=== PATIENT | female | born 1985 | race African-American/Black ===

== ENCOUNTER 2020-04-05 19:34 | Emergency (ER) | payer OTHER, SELFPAY ==
[2020-04-05 19:40] VITALS: BP 154/101; PULSE 94; RESP 19; TEMP 36.1; O2SAT 98
--- NOTE | 2020-04-05 20:56 | PC.NURSE ---
No answer when called from waiting room. Pt left without being seen.
== END 2020-04-05 20:56 | disposition left against medical advice (07) ==
LOC: ANHED 20:59
DX: K21.9 Gastro-esophageal reflux disease without esophagitis (principal)
CPT/HCPCS: 99199

== ENCOUNTER 2020-04-06 11:44 | Emergency (ER) | payer OTHER, SELFPAY ==
--- NOTE | ~2020-04-06 | XR_ITS ---
EXAMINATION: XR chest 2V DATE: 04/06/2020 12:54 INDICATION: Chest pain. TECHNIQUE: Frontal and lateral views of the chest were obtained. COMPARISON: Chest 2 views 09/18/2018 FINDINGS: The chest demonstrates clear lungs without pneumonia, pleural effusion, or pneumothorax. Th e heart size is normal. Surgical clips in the right upper quadrant are likely from cholecystectomy. IMPRESSION: 1. No acute cardiopulmonary disease. Reviewed, dictated and finalized at location A.
[2020-04-06 12:07] VITALS: PULSE 84
[2020-04-06 12:08] VITALS: BP 161/85; PULSE 76; RESP 20; TEMP 37.2; O2SAT 100
--- NOTE | 2020-04-06 12:12 | ECG_ITS ---
Measurements Intervals [place] Rate: 67 P: 45 NE: 150 QRS: 32 QRSD: 94 T: 37 QT: 367 QTc: 389 Interpretive Statements SINUS RHYTHM MINIMAL Q WAVES- INF/LAT LEADS BORDERLINE ECG Electronically Signed On 04-06-2020 12:37:17 CDT by Memo Hunt D.O.
[2020-04-06 12:24] LABS: Basophils Percent Auto 0.3 % (0.2-1.2); Eosinophils Percent Auto 0.3 % (0-4.4); Hematocrit 38.5 % (37.0-47.0); Hemoglobin 13.4 g/dL (12.0-15.0); Immature Granulocyte Absolute 0.04 K/mm3 (0.00-0.031); Immature Granulocyte Percent A 0.5 % (0-0.5); Lymphocytes Percent Auto 33.1 % (18.3-44.2); Mean Corpuscular HGB Conc 34.8 g/dl (32-36); Mean Corpuscular Hemoglobin 29.8 pg (26-34); Mean Corpuscular Volume 85.7 fl (80-100); Mean Platelet Volume 10.8 fl (7.4-10.4); Monocytes Absolute Auto 0.6 K/mm3 (0.1-0.6); Monocytes Percent Auto 6.6 % (2.6-8.5); Neutrophils Absolute Auto 5.2 K/mm3 (1.3-6.7); Neutrophils Percent Auto 59.2 % (45.5-73.1); Platelet Count Result 202 k/mm3 (150-375); Red Blood Count 4.49 M/mm3 (4.2-5.4); White Blood Count 8.8 K/mm3 (4.5-10.0)
[2020-04-06] MEDS: BELLADONNA ALK/PHENOB ELIX 10 ML, MAG HYDROX/ALUMINUM HYD/SIMETH 30 ML, LIDOCAINE HCL 2... PO (12:29)
--- NOTE | 2020-04-06 12:29 | ED.CHESTPAIN ---
HPI - Chest Pain General Chief Complaint: Chest Pain Stated Complaint: CHEST PAIN SOB X1D Time Seen by Provider: 04/06/20 11:58 Source: patient Mode of arrival: ambulatory Limitations: no limitations History of Present Illness HPI narrative: This patient is a 34 year old female who presents for evaluation of mid chest pain. Patient reports after eating yesterday morning she developed midsternal chest pain. She reports that pain remained constant until she took antacids last night. She reports she frequently gets this pain with reflux but this pain is different because she has pain radiating to her shoulders. She woke up this morning with the same pain this morning. Her pain is exacerbated by eating. She reports intermittent nausea. She denies fever, chills, sore throat or runny nose. She reports she has dry cough and sob with her refluX. She reports she has been evaluated in ER for similar symptoms but she has never followed up with GI or PCP. She does not taken any medication consistently. MD complaint: chest pain Onset (ago): day(s) Onset: after eating Pain location: substernal Pain radiation: back Quality: burning Relieving factors: antacids Exacerbating factors: eating Risk Factors Coronary artery disease risk factors: none Thoracic aortic dissection risk factors: none Related Data On Oral Contraceptives: No Allergies Allergy/AdvReac Type Severity Reaction Status Date / Time No Known Allergies Allergy Verified 09/05/17 19:14 Review of Systems Review of Systems: All systems reviewed & are unremarkable except as noted in HPI and below Constitutional: Constitutional: Denies chills and Denies fever(s) ENT: Denies nasal congestion and Denies sore throat Cardiovascular: Cardiovascular: Reports chest pain, Denies rapid heart rate and Reports radiating jaw, neck or arm pain Respiratory: Respiratory: Reports cough (chronic ), Reports dyspnea (chronic ) and Denies wheezing Gastrointestinal: Gastrointestinal: Denies abdominal pain, Denies diarrhea, Reports nausea and Denies vomiting PMF Past Medical History Medical History (Updated 04/06/20 @ 16:00 by Domenica Cook MD) GERD (gastroesophageal reflux disease) Surgical History Surgical History (Updated 04/06/20 @ 12:30 by Domenica Cook MD) History of cholecystectomy Family History Family History (Updated 03/04/14 @ 07:13 by DOCTOR UNKNOWN) Grandparent Hypertension Cerebrovascular accident Other Family history of type 2 diabetes mellitus Social History Social History Smoking status: Former smoker Smoking end date: 07/08/13 Gender identity (if verbalized by the patient): Female Exam Narrative: Exam Narrative: GENERAL: Well-appearing, well-nourished, and in no acute distress. HEAD: Normocephalic, atraumatic EYES: PERRLA and EOMI, conjunctiva clear without discharge THROAT:Mucous membranes moist, Oropharynx normal without erythema, exudate, peritonsillar swelling or fluctuance NECK: Supple, without lymphadenopathy or mass RESPIRATORY: No respiratory distress, Airway patent, Respirations non-labored, Clear to auscultation without rales, rhonchi or wheeze HEART: Regular rate and rhythm. No murmur heard. Normal peripheral pulses. ABDOMEN: Soft, nontender, nondistended, normal active bowel sounds. No masses. No rebound or guarding, No organomegaly. EXTREMITIES: No edema, normal strength with full range of motion. SKIN: Warm, dry, normal color without rash NEURO: Alert and oriented x3. CN 2-12 grossly intact. No focal deficits. PSYCH: Normal mood and affect. Course Reevaluation(s) Reevaluation #1: Patient states pain resolved after GI cocktail. Serial troponins unremarkable. BP normalized to 116. I Discussed discharge plan and follow up . Date: 04/06/20 Time: 15:57 Vital Signs Vital signs: Vital Signs Pulse Rate 84 04/06/20 12:07 Temperature 98.9 F 04/06/20 12:08 Pulse Rate 74
[2020-04-06 12:33] LABS: INR 1.1; Prothrombin Time 13.9 Seconds (11.1-14.7)
[2020-04-06 12:34] LABS: Partial Thromboplastin Time 30.6 SECONDS (22.3-36.8)
--- NOTE | 2020-04-06 12:35 | PC.NURSE ---
Patient in x-ray at this time.
[2020-04-06 12:41] LABS: Anion Gap 8 mmol/L (8-16); Blood Urea Nitrogen 8 mg/dL (7-17); Calcium 9.2 mg/dL (8.4-10.2); Carbon Dioxide 25 mmol/L (22-30); Chloride 105 mmol/L (98-107); Estimated CRCL calculation 74 ml/min; Estimated Glomerular Filt Rate > 60; Glucose 97 mg/dL (65-105); Potassium 4.5 mmol/L (3.4-5.0); Sodium 138 mmol/L (137-145)
[2020-04-06 12:49] LABS: D Dimer 0.27 ug/mL (<0.48)
[2020-04-06 12:53] LABS: Troponin I < 0.012 ng/mL (0.000-0.034)
[2020-04-06] MEDS: PANTOPRAZOLE SODIUM IV 40 MG VIAL IV PUSH (13:02)
[2020-04-06 15:53] LABS: Troponin I < 0.012 ng/mL (0.000-0.034)
[2020-04-06 16:08] VITALS: BP 129/87; PULSE 74; RESP 18; O2SAT 100
== END 2020-04-06 16:17 | disposition home or self-care (01) ==
PROVIDERS: Emergency Provider General Practice
DX: R07.89 Other chest pain (principal); K21.9 Gastro-esophageal reflux disease without esophagitis; Z87.891 Personal history of nicotine dependence
CPT/HCPCS: 36415; 71046; 80048; 84484; 85025; 85380; 85610; 85730; 93005; 96374; 99284; A9270; C9113

== ENCOUNTER 2021-07-14 14:37 | Outpatient (CLI) | payer OTHER, SELFPAY ==
--- NOTE | 2021-07-14 | ECHO_ITS ---
Patient Info Name: Tamela Wood Age: 36 years : 1985 Gender: Female Ht: 65 in Wt: 195 lbs BSA: 2.05 m2 HR: 78 bpm BP: 130 / 83 mmHg Exam Date: 07/14/2021 3:09 PM Exam Location: [facility] Patient Status: Outpatient Admit Date: 07/14/2021 Staff Ordering Physician: VivienJenifer Still Photographer: Tessa Mclean RDCS Attending Provider: Vivien, Jenifer BENTON Referring Physician: Vivien SHIN; Exam Type: CA echo doppler color flow Study Info Indications - dyspnea Summary 1. Left ventricular chamber dimension is normal. 2. Left ventricular systolic function is normal, estimated at 60-65%. 3. The left ventricular diastolic function is grade I diastolic dysfunction. 4. E/e' 8 is minimally elevated. 5. There is trace mitral valve regurgitation. 6. There is mild tricuspid valve regurgitation. 7. No pulmonary hypertension, estimated pulmonary arterial systolic pressure is 30 mmHg. Left Ventricle E/e' 8 is minimally elevated. Left ventricular chamber dimension is normal. Left ventricular systolic function is normal, estimated at 60-65%. The left ventricular diastolic function is grade I diastolic dysfunction. Right Ventricle Right ventricular chamber dimension is normal. Right ventricular systolic function is normal. Left Atria Left atrial chamber dimension is normal. Right Atria Right atrial chamber dimension is normal. Aortic Valve The aortic valve is trileaflet. There is no aortic valve stenosis. There is no aortic valve regurgitation. Pulmonic Valve There is no pulmonic regurgitation. Mitral Valve There is no mitral valve stenosis. There is trace mitral valve regurgitation. Tricuspid Valve There is mild tricuspid valve regurgitation. No pulmonary hypertension, estimated pulmonary arterial systolic pressure is 30 mmHg. Pericardium/Pleural There is no pericardial effusion. Inferior Vena Cava Normal inferior vena cava with >50% collapse upon inspiration consistent with normal right atrial pressure, 5 mmHg. Aorta The aortic root size at the sinus of Valsalva is normal. Left Ventricular Outflow Tract Name Value Normal LVOT 2D LVOT Diameter 2.0 cm LVOT Doppler LVOT Peak Gradient 8 mmHg LVOT Mean Gradient 4 mmHg LVOT VTI 25 cm LVOT VTI/AV VTI Ratio 0.9 LVOT Stroke Volume 80 ml LVOT CO 17.1 l/min LVOT CI 8.3 l/min/m2 Pulmonic Valve Name Value Normal PV Doppler PV Peak Gradient 4 mmHg Mitral Valve Name Value Normal
== END 2021-07-14 14:38 | disposition home or self-care (01) ==
PROVIDERS: Visit Provider Physician Assistant
DX: R06.09 Other forms of dyspnea (principal); I36.1 Nonrheumatic tricuspid (valve) insufficiency
CPT/HCPCS: 93306

== ENCOUNTER 2021-09-08 08:39 | Emergency (ER) | payer OTHER, SELFPAY ==
[2021-09-08] VITALS (16 sets, daily range): BP systolic 123–138; BP diastolic 77–97; PULSE 60–86; RESP 15–24; TEMP 37.2; O2SAT 97–100
--- NOTE | ~2021-09-08 | XR_ITS ---
EXAMINATION: XR chest 2V DATE: 09/08/2021 09:04 INDICATION: Intermittent chest pain. Shortness of breath. Dizziness. TECHNIQUE: Frontal and lateral views of the chest were obtained. COMPARISON: Chest 2 views 04/06/2020 FINDINGS: The chest demonstrates clear lungs without pneumonia, pleural effusion, or pneumothorax. Th e heart size is normal. Surgical clips in the right upper quadrant are likely from cholecystectomy. IMPRESSION: 1. No acute cardiopulmonary disease. Reviewed, dictated and finalized at location A. 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
--- NOTE | 2021-09-08 08:43 | ECG_ITS ---
Measurements Intervals [place] Rate: 74 P: 56 MO: 155 QRS: 47 QRSD: 91 T: 39 QT: 370 QTc: 411 Interpretive Statements SINUS RHYTHM WITH SINUS ARRHYTHMIA NORMAL EKG Electronically Signed On 09-08-2021 10:35:17 NOTEREADER by Gordon Caballero M.D.
--- NOTE | 2021-09-08 09:04 | PC.NURSE ---
Patient off unit to Radiology for chest xray.
[2021-09-08 09:13] LABS: Alanine Aminotransferase 17 U/L (4-35); Albumin Level 4.7 g/dL (3.5-5.1); Alkaline Phosphatase 57 U/L (38-126); Anion Gap 11 mmol/L (8-16); Aspartate Amino Transferase 30 U/L (14-36); Bilirubin,Total 0.7 mg/dL (0.2-1.3); Blood Urea Nitrogen 9 mg/dL (7-17); Calcium 8.8 mg/dL (8.4-10.2); Carbon Dioxide 25 mmol/L (22-30); Chloride 104 mmol/L (98-107); Estimated CRCL calculation 82 ml/min; Estimated Glomerular Filt Rate > 60; Glucose 106 mg/dL (65-110); Lipase 90 U/L (23-300); Potassium 3.7 mmol/L (3.4-5.0); Sodium 140 mmol/L (137-145)
[2021-09-08 09:23] LABS: INR 1.1; Prothrombin Time 13.6 Seconds (11.1-14.7); Troponin I < 0.012 ng/mL (0.000-0.034)
[2021-09-08 09:24] LABS: Partial Thromboplastin Time 31.3 SECONDS (22.3-36.8)
[2021-09-08 09:36] LABS: Basophils Percent Auto 0.3 % (0.2-1.2); Eosinophils Absolute Auto 0.1 K/mm3 (0-0.3); Eosinophils Percent Auto 0.7 % (0-4.4); Hematocrit 40.3 % (37.0-47.0); Hemoglobin 13.6 g/dL (12.0-15.0); Immature Granulocyte Absolute 0.02 K/mm3 (0.00-0.031); Immature Granulocyte Percent A 0.2 % (0-0.5); Lymphocytes Percent Auto 27.9 % (18.3-44.2); Mean Corpuscular HGB Conc 33.7 g/dl (32-36); Mean Corpuscular Hemoglobin 28.6 pg (26-34); Mean Corpuscular Volume 84.8 fl (80-100); Mean Platelet Volume 10.4 fl (7.4-10.4); Monocytes Absolute Auto 0.6 K/mm3 (0.1-0.6); Monocytes Percent Auto 6.2 % (2.6-8.5); Neutrophils Absolute Auto 5.8 K/mm3 (1.3-6.7); Neutrophils Percent Auto 64.7 % (45.5-73.1); Platelet Count Result 233 k/mm3 (150-375); Red Blood Count 4.75 M/mm3 (4.2-5.4); Red Cell Distribution Width 13.9 % (11.5-14.5)
[2021-09-08 09:42] LABS: Creatine Kinase 55 U/L (30-135)
[2021-09-08] MEDS: PANTOPRAZOLE SODIUM IV 40 MG VIAL IV PUSH (09:44)
[2021-09-08] MEDS: KETOROLAC 15 MG/ML VIAL (*BKC) IV PUSH (09:44)
[2021-09-08 09:50] LABS: D Dimer < 0.27 ug/mL (<0.48)
--- NOTE | 2021-09-08 10:06 | ED.CHESTPAIN ---
HPI - Chest Pain General Chief Complaint: Chest Pain Stated Complaint: chest pain Time Seen by Provider: 09/08/21 08:58 Source: patient and RN notes reviewed Mode of arrival: ambulatory Limitations: no limitations History of Present Illness HPI narrative: This is a 36 year old female who presents for evaluation of chest pain. Patient has been dealing with chest pain for several months and she has been evaluated in ER before. She is continuing to have intermittent left sternal chest pain with shortness of breath. She denies symptoms being worse with exertion. Her pain last for 30 minutes. She denies associated cough, nausea, vomiting or fever. She has been evaluated by PCP and referred to entertainment musician. She was evaluated by entertainment musician and she has been scheduled for echo stress test. PAtient also states the entertainment musician recommends evaluation with upper endoscopy as cause of her pain. She is also complaining of pain to her extremities. She has been taking multiple doses of aspirin to treat her body pain. She has now discontinued taking aspirin on the direction of entertainment musician. She denies melena Related Data Home Medications Medication Instructions Recorded Confirmed aspirin [Adult Low Dose Aspirin] 81 mg PO PRN 09/08/21 calcium carbonate 500 mg PO DAILY PRN 09/08/21 09/08/21 omeprazole 20 mg PO DAILY 09/08/21 Allergies Allergy/AdvReac Type Severity Reaction Status Date / Time No Known Allergies Allergy Verified 09/05/17 19:14 Review of Systems Review of Systems: All systems reviewed & are unremarkable except as noted in HPI and below Constitutional: Constitutional: Denies chills and Denies fever(s) ENT: Denies nasal congestion and Denies sore throat Cardiovascular: Cardiovascular: Reports chest pain and Denies rapid heart rate Respiratory: Respiratory: Denies cough, Reports dyspnea and Denies wheezing Gastrointestinal: Gastrointestinal: Denies abdominal pain, Denies diarrhea, Reports nausea and Denies vomiting Musculoskeletal: Musculoskeletal: Denies back pain and Reports myalgias PMFSH Past Medical History Medical History GERD (gastroesophageal reflux disease) Surgical History Surgical History (Updated 04/06/20 @ 12:30 by Domenica Cook MD) History of cholecystectomy Family History Family History (Updated 03/04/14 @ 07:13 by DOCTOR UNKNOWN) Grandparent Hypertension Cerebrovascular accident Other Family history of type 2 diabetes mellitus Social History Social History Smoking status: Former smoker Smoking end date: 07/08/13 Gender identity (if verbalized by the patient): Female Exam Const: General: no acute distress and alert Orientation/consciousness: patient oriented x3 Eyes: EOM: EOMs intact bilaterally Chest: Chest palpation & inspection: normal inspection of the chest Resp: Effort & Inspection: normal respiratory effort and no retractions Auscultation: clear to auscultation bilaterally Cardio: Rate: regular rate Heart sounds: no murmurs Other: equal palpable pulses in all extremities GI: GI Palp: Yes Soft to palpation, No Tenderness to palpation present (GI) and No Guarding due to palpation present (GI) Auscultation: normal bowel sounds Skin: General skin exam: normal color Rashes: no rashes Neuro: General: patient oriented x3, moves all extremities and CN's II-XI intact bilaterally Psych: Mental Status: mental status grossly normal Affect: normal affect Course Reevaluation(s) Reevaluation #1: I Discussed with patient labs are unremarkable. I stressed need to follow up with PCP to continue evaluation for her atypical symptoms. Date: 09/08/21 Time: 13:11 Vital Signs Vital signs: Vital Signs Temperature 99 F 09/08/21 08:46 Pulse Rate 76 09/08/21 08:46 Respiratory Rate 19 09/08/21 08:46 Blood Pressure 138/82 09/08/21 08:46 Pulse Oximetry 100 09/08/21 08:46
--- NOTE | 2021-09-08 12:05 | PC.NURSE ---
Repeat troponin obtained and sent to lab for processing.
[2021-09-08 12:31] LABS: Troponin I < 0.012 ng/mL (0.000-0.034)
== END 2021-09-08 13:35 | disposition home or self-care (01) ==
PROVIDERS: Emergency Provider General Practice
DX: R07.89 Other chest pain (principal); M79.10 Myalgia, unspecified site; K21.9 Gastro-esophageal reflux disease without esophagitis; Z87.891 Personal history of nicotine dependence
CPT/HCPCS: 36415; 71046; 80053; 82550; 83690; 84484; 85025; 85380; 85610; 85730; 93005; 96374; 96375; 99284; C9113; J1885

== ENCOUNTER 2021-09-20 18:22 | Emergency (ER) | payer OTHER, SELFPAY ==
[2021-09-20] VITALS (11 sets, daily range): BP systolic 118–148; BP diastolic 68–94; PULSE 67–97; RESP 14–20; TEMP 36.2–36.5; O2SAT 98–100
--- NOTE | ~2021-09-20 | XR_ITS ---
XR chest 2V DATE: 09/20/2021 18:47 INDICATION: Chest pain TECHNIQUE: PA and lateral views COMPARISON: 09/08/2021 2 view chest FINDINGS: Normal heart size. No hilar or mediastinal enlargement. No pulmonary infiltrate or consolid ation, pleural effusion or pulmonary vascular congestion or pneumothorax. There is dextroscoliosis of the thoracolumbar spine. Status post cholecystectomy. IMPRESSION: No active cardiopulmonary disease Reviewed, dictated and finalized at location A.
--- NOTE | 2021-09-20 18:22 | ECG_ITS ---
Measurements Intervals [place] Rate: 96 P: 59 LA: 151 QRS: 51 QRSD: 90 T: 42 QT: 340 QTc: 432 Interpretive Statements SINUS RHYTHM COMPARED TO ECG 09/08/2021 08:46:51 NO SIGNIFICANT CHANGES Electronically Signed On 09-20-2021 20:29:39 CDT by Toshia Ortiz M.D.
[2021-09-20 18:45] LABS: Basophils Percent Auto 0.3 % (0.2-1.2); Eosinophils Percent Auto 0.4 % (0-4.4); Hematocrit 38.3 % (37.0-47.0); Hemoglobin 12.8 g/dL (12.0-15.0); Immature Granulocyte Absolute 0.03 K/mm3 (0.00-0.031); Immature Granulocyte Percent A 0.3 % (0-0.5); Lymphocytes Absolute Auto 3.02 K/mm3 (0.9-3.2); Lymphocytes Percent Auto 32.2 % (18.3-44.2); Mean Corpuscular HGB Conc 33.4 g/dl (32-36); Mean Corpuscular Hemoglobin 28.3 pg (26-34); Mean Corpuscular Volume 84.5 fl (80-100); Mean Platelet Volume 10.8 fl (7.4-10.4); Monocytes Absolute Auto 0.6 K/mm3 (0.1-0.6); Monocytes Percent Auto 6.1 % (2.6-8.5); Neutrophils Absolute Auto 5.7 K/mm3 (1.3-6.7); Neutrophils Percent Auto 60.7 % (45.5-73.1); Platelet Count Result 201 k/mm3 (150-375); Red Blood Count 4.53 M/mm3 (4.2-5.4); Red Cell Distribution Width 13.4 % (11.5-14.5); White Blood Count 9.4 K/mm3 (4.5-10.0)
[2021-09-20 18:55] LABS: INR 1.1; Partial Thromboplastin Time 30.9 SECONDS (22.3-36.8); Prothrombin Time 13.8 Seconds (11.1-14.7)
[2021-09-20 19:12] LABS: Alanine Aminotransferase 15 U/L (4-35); Albumin Level 4.9 g/dL (3.5-5.1); Alkaline Phosphatase 56 U/L (38-126); Anion Gap 9 mmol/L (8-16); Aspartate Amino Transferase 28 U/L (14-36); Bilirubin,Total 0.7 mg/dL (0.2-1.3); Blood Urea Nitrogen 11 mg/dL (7-17); Calcium 9.3 mg/dL (8.4-10.2); Carbon Dioxide 25 mmol/L (22-30); Chloride 102 mmol/L (98-107); Estimated CRCL calculation 74 ml/min; Estimated Glomerular Filt Rate > 60; Glucose 86 mg/dL (65-110); Lipase 72 U/L (23-300); Potassium 3.9 mmol/L (3.4-5.0); Sodium 136 mmol/L (137-145)
[2021-09-20 19:13] LABS: Troponin I < 0.012 ng/mL (0.000-0.034)
--- NOTE | 2021-09-20 21:15 | ED.CHESTPAIN ---
HPI - Chest Pain General Chief Complaint: Chest Pain Stated Complaint: chest pain Time Seen by Provider: 09/20/21 21:01 Source: patient History of Present Illness HPI narrative: Patient presents with left-sided chest pains which she said symptoms for the past few months has seen a certified physician's assistant and is scheduled for a stress test. Reports her pain is worse at night and seems to be getting worse so she came to the ER for evaluation. Reports her pain is on the entirety of her left chest neck and arm and is associated with shortness of breath. She denies any cough, congestion denies any clear aggravating or alleviating factors except that it is worse at night. Related Data Home Medications Medication Instructions Recorded Confirmed aspirin [Adult Low Dose Aspirin] 81 mg PO PRN 09/08/21 calcium carbonate 500 mg PO DAILY PRN 09/08/21 09/08/21 omeprazole 20 mg PO DAILY 09/08/21 Allergies Allergy/AdvReac Type Severity Reaction Status Date / Time No Known Allergies Allergy Verified 09/20/21 18:22 Review of Systems Review of Systems: CONSTITUTIONAL: Denies fever, chills, or sweats. EYES: Denies visual changes, redness, or discharge. ENT: Denies rhinorrhea, congestion, sore throat, or otalgia. CARDIOVASCULAR: Denies palpitations, or edema. RESPIRATORY: Denies cough GASTROINTESTINAL: Denies abdominal pain, nausea, vomiting, or diarrhea. GENITOURINARY: Denies dysuria or hematuria. SKIN: Denies rash or itching. MUSCULOSKELETAL: Denies back pain, joint pain, or myalgia. NEUROLOGIC: Denies headache, numbness, dizziness, or weakness. PSYCHIATRIC: Denies anxiety or depression. All systems reviewed & are unremarkable except as noted in HPI and below PMFSH Past Medical History Medical History GERD (gastroesophageal reflux disease) Surgical History Surgical History History of cholecystectomy Family History Family History Grandparent Hypertension Cerebrovascular accident Other Family history of type 2 diabetes mellitus Social History Social History Smoking status: Former smoker Smoking end date: 07/08/13 Gender identity (if verbalized by the patient): Female Exam Narrative: GENERAL: Well-appearing, well-nourished, and in no acute distress. HEAD: Normocephalic, atraumatic. EYES: PERRLA and EOMI. ENT: Nares clear, no rhinorrhea or epistaxis. Mucous membranes moist. NECK: Supple. No masses. No JVD CHEST: Clear to auscultation. No respiratory distress. No wheezes rales or rhonchi HEART: Regular rate and rhythm. No murmur heard. Normal peripheral pulses. ABDOMEN: Soft, nontender, nondistended, normal active bowel sounds. EXTREMITIES: Normal range of motion. No edema. SKIN: Warm, dry, no rash. NEURO: No focal deficits. Alert and oriented x3. PSYCH: Normal mood and affect. Course Vital Signs Vital signs: Vital Signs Temperature 36.2 C L 09/20/21 18:23 Pulse Rate 97 09/20/21 18:23 Respiratory Rate 20 09/20/21 18:23 Blood Pressure 148/94 H 09/20/21 18:23 Pulse Oximetry 99 09/20/21 18:23 Temperature 36.5 C 09/20/21 22:00 Pulse Rate 70 09/20/21 22:00 Respiratory Rate 16 09/20/21 22:00 Blood Pressure 118/68 09/20/21 22:00 Pulse Oximetry 100 09/20/21 22:00 MDM - Chest Pain MDM Narrative Medical decision making narrative: H&P as above, vss, pt looks clinically well, exam reassuring, labs clinically unremarkable, img unremarkable, additional labs/img considered, symptomatic relief available as needed, on reevaluation pt continues to looks clinically well. There is remain of unclear etiology low concern for ACS, PE, dissection, pneumothorax. Patient is already established outpatient work-up for this complaint and she was encouraged without outpatient work-up.
[2021-09-20 21:26] LABS: Troponin I < 0.012 ng/mL (0.000-0.034)
[2021-09-20] MEDS: KETOROLAC 30 MG/ML VIAL (*BKC) IV PUSH (21:55)
== END 2021-09-20 22:23 | disposition home or self-care (01) ==
LOC: ANHED 21:26
PROVIDERS: Family Medicine; Emergency Provider Emergency Medicine; PCP Physician Assistant
DX: R07.89 Other chest pain (principal); K21.9 Gastro-esophageal reflux disease without esophagitis
CPT/HCPCS: 36415; 71046; 80053; 83690; 84484; 85025; 85610; 85730; 93005; 96374; 99284; J1885

== ENCOUNTER 2021-09-28 09:40 | Outpatient (CLI) | payer OTHER, SELFPAY ==
--- NOTE | ~2021-09-28 | XR_ITS ---
EXAMINATION: XR chest 2V 09/28/2021 10:00 INDICATION: Shortness of breath and midsternal chest pain PROCEDURE: 2 view chest COMPARISON: Comparison to multiple prior studies sequentially, with oldest reviewed study dated 09/18. FINDINGS: The lungs are clear. The cardiomediastinal silhouette is within normal limits. There are no pleural effusions. There is no pneumothorax suspected. IMPRESSION: 1: NO ACUTE CARDIOPULMONARY DISEASE. Reviewed, dictated and finalized at location A.
== END 2021-09-28 09:41 | disposition home or self-care (01) ==
LOC: ANHIMG 09:44
PROVIDERS: PCP Physician Assistant; Visit Provider Internal Medicine Cardiovascular Disease
DX: R07.89 Other chest pain (principal); R06.02 Shortness of breath
CPT/HCPCS: 71046

== ENCOUNTER 2021-12-20 15:33 | Outpatient (CLI) | payer OTHER, SELFPAY ==
--- NOTE | ~2021-12-20 | XR_ITS ---
EXAM: XR cervical spine 4-5V DATE: 12/20/2021 16:25 HISTORY: CERVICALGIA,PAIN TO LT SIDE OF NECK GOES DOWN LEFT [id number] . COMPARISON: None available. FINDINGS: Craniocervical association and atlantoaxial joint are normal. No prevertebral soft tissue swelling. Loss of the normal cervical lordosis as can occur with positioning or muscle spasm. Vertebr al bodies are aligned. Vertebral body heights are maintained. Mild disc space narrowing most notably at C5-6 and C7-T1. Normal facets and posterior elements. IMPRESSION: Multilevel mild degenerative disc disease. Reviewed, dictated and finalized at location K.
== END 2021-12-20 15:34 | disposition home or self-care (01) ==
PROVIDERS: PCP Physician Assistant; Visit Provider Physician Assistant
DX: M50.30 Other cervical disc degeneration, unspecified cervical region (principal)
CPT/HCPCS: 72050

== ENCOUNTER 2022-02-19 01:34 | Day surgery (SDC) | payer OTHER, SELFPAY ==
[2022-02-16 14:02] VITALS: BMI 30.8
--- NOTE | 2022-02-19 08:12 | WPDANESEPPF ---
Anes - Initial Pre Proc Eval Procedure: Operation Date: 02/19/22 10:30 Proposed Procedures p Esophagogastroduodenoscopy - Preston Farfan MD Date/Time: 02/19/22 08:12 Surgeon: Preston Farfan MD Pre Op Diagnosis: GERD Patient Data Age: 36 Gender: F Height: 1.65 m Weight: 84 kg Allergies Allergy/AdvReac Type Severity Reaction Status Date / Time No Known Allergies Allergy Verified 02/19/22 09:43 Home Medications Medication Instructions Recorded Confirmed Type acetaminophen 325 mg tablet 325 mg PO PRN PRN Pain 02/16/22 02/16/22 History (Tylenol) Patient hx anesthesia problems: none Family hx anesthesia problems: none Results Review: All pre-operative results and documents have been reviewed as part of the pre-operative evaluation. [facility] Past Medical History Medical History (Updated 02/19/22 @ 10:24 by Preston Farfan MD) Anxiety GERD (gastroesophageal reflux disease) PCOS (polycystic ovarian syndrome) Surgical History Surgical History (Updated 02/16/22 @ 14:44 by Romain Carias DO) History of History of cholecystectomy Family History Family History Grandparent Hypertension Cerebrovascular accident Other Family history of type 2 diabetes mellitus Social History Social History Smoking status: Former smoker Smoking end date: 07/08/13 Alcohol intake: never Substance use: never Substance use type: does not use Living arrangements: with family Gender identity (if verbalized by the patient): Female Spiritual care concerns: No Anes - Eval Final PreProcedure Day of Procedure 02/19/22 08:12 Patient weight: obese Heart: regular rate and rhythm Lungs: clear to auscultation Airway: Mallampati scale class II Neurological: alert and oriented Last oral intake: >/= 8 hours ASA classification: II Emergent: no Anesthetic plan: proceed Anesthesia type and monitoring: general GIVS and standard monitoring Results Review: All pre-operative results and documents have been reviewed as part of the pre-operative evaluation. Informed Consent: The patient's anesthetic plan and its attendant risks and benefits were discussed with the patient/family/POA. Questions were solicited and answers provided to the satisfaction of the patient/family/POA.
[2022-02-19 09:55] VITALS: BP 121/82; PULSE 73; RESP 16; TEMP 36.7; O2SAT 100
[2022-02-19] MEDS: LACTATED RINGERS 1,000 ML 150 ML IV CONT (10:07)
--- NOTE | 2022-02-19 10:22 | P.HP_ITS ---
H&P: HPI History of Present Illness Date/Time: 02/19/22 10:22 Chief Complaint: Left neck and chest pain, history of heartburn Narrative: this is a 36-year-old female patient referred because of heartburn. Patient states over the last 2 years has had heartburn. This initially occurred more frequently but now only p.r.n.. She states Tums relieves the discomfort. Briefly she was given a trial of omeprazole which seemed to help but no longer required. She currently takes Tums for relief. Over the last 1 year she also has had left neck and left chest pain. Not related to diet or activity. Because of this new pain an EGD is requested. She reports that recent imaging of her neck reveals arthritis. Patient denies any dysphagia or bleeding. Family history noncontributory. Review of Systems Review of Systems: Review of systems noncontributory. [facility] Past Medical History Medical History (Updated 02/19/22 @ 10:24 by Preston Farfan MD) Anxiety GERD (gastroesophageal reflux disease) PCOS (polycystic ovarian syndrome) Surgical History Surgical History (Updated 02/16/22 @ 14:44 by Romain Carisa DO) History of History of cholecystectomy Family History Family History Grandparent Hypertension Cerebrovascular accident Other Family history of type 2 diabetes mellitus Social History Social History Smoking status: Former smoker Smoking end date: 07/08/13 Alcohol intake: never Substance use: never Substance use type: does not use Living arrangements: with family Gender identity (if verbalized by the patient): Female Spiritual care concerns: No Meds Home Medications and Allergies Home Medications Medication Instructions Recorded Confirmed Type acetaminophen 325 mg tablet 325 mg PO PRN PRN Pain 02/16/22 02/16/22 History (Tylenol) Allergies Allergy/AdvReac Type Severity Reaction Status Date / Time No Known Allergies Allergy Verified 02/19/22 09:43 Vital Signs Vital Signs - 24 hr 02/19/22 09:55 Temperature 98.1 F Pulse Rate 73 Respiratory Rate 16 Blood Pressure 121/82 Pulse Oximetry 100 Oxygen Delivery Room Air Exam Narrative: Physical exam reveals patient to be alert. Vital signs stable. HEENT exam is unremarkable. Patient is anicteric. Lungs are clear to auscultation and percussion. Heart is without murmur or extra sounds. Abdomin al exam bowel sounds are present soft nontender with no hepatosplenomegaly. Assessment and Plan Assessment and plan (1) Heartburn: Code(s): R12 - Heartburn Status: Acute Assessment and Plan: patient complains of heartburn. Currently controlled with Tums. She previously took omeprazole but feels she does not needed at this time. EGD is requested. (2) Left-sided chest pain: Code(s): R07.9 - Chest pain, unspecified Status: Acute Assessment and Plan: Patient reports left neck and chest pain which has developed over the last year. Not related to diet. Not relieved with omeprazole nor Tums. Workup currently in progress by primary care service.
[2022-02-19 10:39] VITALS: BP 111/73; PULSE 68; RESP 20; O2SAT 100
[2022-02-19 10:49] VITALS: BP 114/75; PULSE 66; RESP 22; O2SAT 99
[2022-02-19 10:59] VITALS: BP 120/81; PULSE 62; RESP 20; O2SAT 100
== END 2022-02-19 11:14 | disposition home or self-care (01) ==
PROVIDERS: PCP Physician Assistant; Visit Provider Internal Medicine Gastroenterology
PROC: 0DJ08ZZ Inspection of Upper Intestinal Tract, Via Natural or Artificial Opening Endoscopic (ICD-10-PCS; CPT 43235; principal; 2022-02-19 10:30)
DX: R12 Heartburn (principal); R07.89 Other chest pain; M54.2 Cervicalgia; F41.9 Anxiety disorder, unspecified; K21.9 Gastro-esophageal reflux disease without esophagitis; E28.2 Polycystic ovarian syndrome; Z90.49 Acquired absence of other specified parts of digestive tract; Z87.891 Personal history of nicotine dependence; E66.9 Obesity, unspecified; Z68.31 Body mass index [BMI] 31.0-31.9, adult
CPT/HCPCS: 43239; 87081; J2704; J7120

== ENCOUNTER 2022-04-13 09:12 | Emergency (ER) | payer OTHER, SELFPAY ==
[2022-04-13] VITALS (7 sets, daily range): BP systolic 120–147; BP diastolic 73–95; PULSE 66–87; RESP 14–18; TEMP 36.9; O2SAT 99–100
--- NOTE | ~2022-04-13 | CT_ITS ---
EXAMINATION: CT brain wo con DATE: 04/13/2022 10:40 INDICATION: Dizziness. Headache. TECHNIQUE: Computed tomography (CT) of the head was performed without intravenous contrast. The mA wa s adjusted according to patient size. Iterative reconstruction technique was employed. The dose-lengt h product was 605.33 mGy-cm. COMPARISON: Head CT 03/07/2013 FINDINGS: There is no intracranial hemorrhage, acute infarction, or abnormal intracranial mass lesion . The ventricles are normal in size. The orbits are normal. The paranasal sinuses are clear. The mast oid air cells are normal. . IMPRESSION: 1. Normal brain. Reviewed, dictated and finalized at location B. IMPRESSION: 1. Normal brain.
--- NOTE | 2022-04-13 09:47 | ECG_ITS ---
Measurements Intervals [place] Rate: 71 P: 55 [place]: 158 QRS: 45 QRSD: 90 T: 44 QT: 374 QTc: 409 Interpretive Statements SINUS RHYTHM NORMAL ELECTROCARDIOGRAM COMPARED TO ECG 09/20/2021 18:29:57 NO SIGNIFICANT CHANGES Electronically Signed On 04-13-2022 13:46:19 CDT by Ishmael Fortune M.D.
--- NOTE | 2022-04-13 09:50 | ED.HA ---
HPI - Headache General Chief Complaint: Headache Stated Complaint: headache, dizzy spells Time Seen by Provider: 04/13/22 09:16 History of Present Illness HPI Narrative: 36-year-old female presents the emergency room with a headache for 1 week. Patient describes the headache as squeezing, bandlike feeling. Patient denies any photophobia or phonophobia. Denies any vision or hearing changes. Patient denies head injury or trauma. Denies associated nausea or vomiting. Patient does endorse occasional dizziness since spells that last for 2 to 3 seconds at a time. Patient denies any URI symptoms. Related Data Home Medications Medication Instructions Recorded Confirmed acetaminophen 325 mg tablet 325 mg PO PRN PRN Pain 02/16/22 02/16/22 (Tylenol) Allergies Allergy/AdvReac Type Severity Reaction Status Date / Time No Known Allergies Allergy Verified 04/13/22 10:44 Review of Systems Review of Systems: CONSTITUTIONAL: Denies fever, chills, or sweats. EYES: Denies visual changes, redness, or discharge. ENT: Denies rhinorrhea, congestion, sore throat, or otalgia. CARDIOVASCULAR: Denies chest pain, palpitations, or edema. RESPIRATORY: Denies cough or dyspnea. GASTROINTESTINAL: Denies abdominal pain, nausea, vomiting, or diarrhea. GENITOURINARY: Denies dysuria or hematuria. SKIN: Denies rash or itching. MUSCULOSKELETAL: Denies back pain, joint pain, or myalgia. NEUROLOGIC: Reports dizziness PSYCHIATRIC: Denies anxiety or depression. [facility] Past Medical History Medical History Anxiety GERD (gastroesophageal reflux disease) PCOS (polycystic ovarian syndrome) Surgical History Surgical History History of History of cholecystectomy Family History Family History Grandparent Hypertension Cerebrovascular accident Other Family history of type 2 diabetes mellitus Social History Social History Smoking status: Former smoker Smoking end date: 07/08/13 Alcohol intake: never Substance use: never Substance use type: does not use Gender identity (if verbalized by the patient): Female Spiritual care concerns: No Exam Narrative: GENERAL: Well-appearing, well-nourished, no physical limitations, and in no acute distress. HEAD: Normocephalic, atraumatic. EYES: Conjunctivae normal, PERRLA and EOMI. no nystagmus noted ENT: External nose normal, Nares clear, no rhinorrhea or epistaxis. Mucous membranes moist. Oropharynx without tonsillar hypertrophy exudate or other lesions. External ears normal, bilateral TMs normal bilaterally NECK: Supple. No meningeal signs. No adenopathy or masses. No carotid bruits or JVD CHEST: Clear to auscultation. No respiratory distress. No wheezes rales or rhonchi. HEART: Regular rate and rhythm. No murmur heard. Normal peripheral pulses. EXTREMITIES: Normal range of motion. No edema. No clubbing or cyanosis SKIN: Warm, dry, no rash. No noted wounds NEURO: No focal deficits. Alert and oriented x3. MAEW. CN's II-XI intact bilaterally, normal gait PSYCH: Cooperative. Normal mood and affect. Course Vital Signs Vital signs: Vital Signs Temperature 36.9 C 04/13/22 09:16 Pulse Rate 77 04/13/22 09:16 Respiratory Rate 18 04/13/22 09:16 Blood Pressure 140/84 04/13/22 09:16 Pulse Oximetry 100 04/13/22 09:16 Temperature 36.9 C 04/13/22 09:16 Pulse Rate 87 04/13/22 10:31 Respiratory Rate 14 04/13/22 09:25 Blood Pressure 135/83 04/13/22 10:31 Pulse Oximetry 100 04/13/22 10:31 MDM - Headache Lab Data Result diagrams: 04/13/22 10:05 04/13/22 10:05 Labs: Lab Results 04/13/22 04/13/22 04/13/22 Range/Units 10:05 10:05 10:05 WBC 7.7 (4.5-10.0) K/mm3 RBC 4.34 (4.2-5.4
[2022-04-13 10:13] LABS: Basophils Percent Auto 0.4 % (0.2-1.2); Eosinophils Absolute Auto 0.1 K/mm3 (0-0.3); Eosinophils Percent Auto 0.8 % (0-4.4); Hematocrit 37.3 % (37.0-47.0); Hemoglobin 12.7 g/dL (12.0-15.0); Immature Granulocyte Absolute 0.03 K/mm3 (0.00-0.031); Immature Granulocyte Percent A 0.4 % (0-0.5); Mean Corpuscular Hemoglobin 29.3 pg (26-34); Mean Corpuscular Volume 85.9 fl (80-100); Mean Platelet Volume 10.6 fl (7.4-10.4); Monocytes Absolute Auto 0.3 K/mm3 (0.1-0.6); Monocytes Percent Auto 4.4 % (2.6-8.5); Neutrophils Absolute Auto 5.6 K/mm3 (1.3-6.7); Platelet Count Result 173 k/mm3 (150-375); Red Blood Count 4.34 M/mm3 (4.2-5.4); Red Cell Distribution Width 12.9 % (11.5-14.5); White Blood Count 7.7 K/mm3 (4.5-10.0)
[2022-04-13 10:17] LABS: Appearance Urine Clear (Clear); Bilirubin Urine Negative (Negative); Blood Urine Negative (Negative); Color Urine Yellow (Yellow); Glucose Urine UA Negative (Negative); Ketones Urine Negative (Negative); Leukocyte Esterase Ur Negative LEU/UL (Negative); Nitrate Urine Negative (Negative); Protein Urine Negative (Negative); Urobilinogen Urine 0.2 mg/dL (<2.0); pH Urine 7.5 (5.0-9.0)
[2022-04-13 10:23] LABS: Add Urine Microscopic? NO
[2022-04-13] MEDS: SODIUM CHLORIDE 0.9% IV 1,000 ML 999 ML IV CONT (10:24)
[2022-04-13] MEDS: methylPREDNISolone SOD SUCC 125 MG VIAL IV PUSH (10:25)
[2022-04-13] MEDS: KETOROLAC 30 MG/ML VIAL (*BKC) IV PUSH (10:25)
[2022-04-13] MEDS: diphenhydrAMINE HCl INJ 50 MG/ML VIAL 25 MG IV PUSH (10:32)
[2022-04-13] MEDS: METOCLOPRAMIDE HCL INJ 10 MG/2 ML VIAL IV PUSH (10:32)
[2022-04-13 10:48] LABS: Alanine Aminotransferase 23 U/L (6-35); Albumin Level 4.4 g/dL (3.5-5.1); Alkaline Phosphatase 52 U/L (38-126); Anion Gap 8 mmol/L (8-16); Aspartate Amino Transferase 30 U/L (14-36); Bilirubin,Total 0.5 mg/dL (0.2-1.3); Blood Urea Nitrogen 8 mg/dL (7-17); Calcium 8.8 mg/dL (8.4-10.2); Carbon Dioxide 27 mmol/L (22-30); Chloride 103 mmol/L (98-107); Estimated CRCL calculation 69 ml/min; Estimated Glomerular Filt Rate > 60; Glucose 114 mg/dL (65-110); Potassium 4.1 mmol/L (3.4-5.0); Sodium 138 mmol/L (137-145)
[2022-04-13 11:00] LABS: Troponin I < 0.012 ng/mL (0.000-0.034)
[2022-04-13 12:28] LABS: SARS-CoV-2 RNA PCR Negative
== END 2022-04-13 12:36 | disposition home or self-care (01) ==
PROVIDERS: Emergency Provider Nurse Practitioner Family; PCP Physician Assistant
DX: R51.9 Headache, unspecified (principal); R42 Dizziness and giddiness; Z87.891 Personal history of nicotine dependence; Z20.822 Contact with and (suspected) exposure to COVID-19
CPT/HCPCS: 36415; 70450; 80053; 81003; 84484; 85025; 93005; 96361; 96374; 96375; 99284; C9803; J1200; J1885; J2765; J2930; J7030; U0003; U0005

== ENCOUNTER 2022-05-23 10:46 | Emergency (ER) | payer OTHER, SELFPAY ==
--- NOTE | ~2022-05-23 | CT_ITS ---
EXAMINATION: CT abdomen pelvis w con DATE: 05/23/2022 12:42 INDICATION: Right flank pain. Right lower quadrant abdominal pain. TECHNIQUE: Computed tomography (CT) of the abdomen and pelvis was performed with 100 mL Omnipaque 350 intravenous contrast. Automated exposure control and iterative reconstruction technique were employe d. The dose-length product was 520.89 mGy-cm. COMPARISON: None. FINDINGS: The visualized portions of the lung bases demonstrate mild atelectasis. No pleural effusion . The heart size is normal. No pericardial effusion. The liver is normal. There are changes of cholec ystectomy. The spleen, pancreas, adrenal glands, and kidneys are normal. There is diverticulosis of t he colon without evidence of diverticulitis. There are no dilated loops of bowel. The appendix is nor mal. There are no pathologically enlarged lymph nodes. There is no free intraperitoneal fluid. There is severe lower lumbar spondylosis. IMPRESSION: 1. No etiology for the patient's symptoms. Reviewed, dictated and finalized at location A. 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
[2022-05-23 11:11] VITALS: BP 133/86; PULSE 72; RESP 14; TEMP 36.7; O2SAT 100
[2022-05-23 11:23] LABS: Basophils Percent Auto 0.4 % (0.2-1.2); Eosinophils Percent Auto 0.4 % (0-4.4); Hematocrit 38.5 % (37.0-47.0); Hemoglobin 13.3 g/dL (12.0-15.0); Immature Granulocyte Absolute 0.02 K/mm3 (0.00-0.031); Immature Granulocyte Percent A 0.2 % (0-0.5); Lymphocytes Absolute Auto 2.68 K/mm3 (0.9-3.2); Lymphocytes Percent Auto 31.5 % (18.3-44.2); Mean Corpuscular HGB Conc 34.5 g/dl (32-36); Mean Corpuscular Volume 83.9 fl (80-100); Mean Platelet Volume 10.6 fl (7.4-10.4); Monocytes Absolute Auto 0.4 K/mm3 (0.1-0.6); Monocytes Percent Auto 5.2 % (2.6-8.5); Neutrophils Absolute Auto 5.3 K/mm3 (1.3-6.7); Neutrophils Percent Auto 62.3 % (45.5-73.1); Platelet Count Result 203 k/mm3 (150-375); Red Blood Count 4.59 M/mm3 (4.2-5.4); White Blood Count 8.5 K/mm3 (4.5-10.0)
[2022-05-23 11:24] LABS: Appearance Urine Clear (Clear); Bilirubin Urine 1+ (Negative); Blood Urine Negative (Negative); Color Urine Yellow (Yellow); Glucose Urine UA Negative (Negative); Ketones Urine 1+ mg/dL (Negative); Leukocyte Esterase Ur Negative LEU/UL (Negative); Nitrate Urine Negative (Negative); Protein Urine 1+ mg/dL (Negative); Specific Grav Ur 1.015 (1.001-1.035); pH Urine 8.5 (5.0-9.0)
[2022-05-23 11:31] LABS: Alanine Aminotransferase 22 U/L (6-35); Albumin Level 4.8 g/dL (3.5-5.1); Alkaline Phosphatase 58 U/L (38-126); Anion Gap 9 mmol/L (8-16); Aspartate Amino Transferase 36 U/L (14-36); Blood Urea Nitrogen 10 mg/dL (7-17); Calcium 8.9 mg/dL (8.4-10.2); Carbon Dioxide 27 mmol/L (22-30); Chloride 102 mmol/L (98-107); Estimated Glomerular Filt Rate > 60; Glucose 112 mg/dL (65-110); Lipase 49 U/L (23-300); Potassium 4.4 mmol/L (3.4-5.0); Sodium 138 mmol/L (137-145)
[2022-05-23 11:37] VITALS: PULSE 74; RESP 18; O2SAT 99
[2022-05-23 11:38] LABS: Bacteria Urine Trace /hpf; Mucus Urine Rare /lpf; RBC Urine 0-2 /hpf (0-2); Squamous Epithelial Cell Urine Few /hpf (Few); WBC Urine 0-3 /hpf
--- NOTE | 2022-05-23 11:44 | ED.ABDPAIN ---
HPI - Abdominal Pain General Chief Complaint: Abdominal Pain Stated Complaint: LLQ abd pain Time Seen by Provider: 05/23/22 11:44 Source: patient History of Present Illness HPI narrative: 37 years old -[place] female presents with right lower quadrant pain radiating to right lower back started 1 week ago, intermittent, she denies any fever, chills, nausea, vomiting, history of cholecystectomy, patient is not on any medication at home. Patient drove herself to the emergency room. Patient denies aggravating or relieving factors. Related Data Home Medications Medication Instructions Recorded Confirmed acetaminophen 325 mg tablet 325 mg PO PRN PRN Pain 02/16/22 02/16/22 (Tylenol) Allergies Allergy/AdvReac Type Severity Reaction Status Date / Time No Known Allergies Allergy Verified 05/23/22 11:40 Review of Systems Review of Systems: All systems reviewed & are unremarkable except as noted in HPI and below PMFSH Past Medical History Medical History Anxiety GERD (gastroesophageal reflux disease) PCOS (polycystic ovarian syndrome) Surgical History Surgical History History of History of cholecystectomy Family History Family History Grandparent Hypertension Cerebrovascular accident Other Family history of type 2 diabetes mellitus Social History Social History Smoking status: Former smoker Smoking end date: 07/08/13 Alcohol intake: never Substance use: never Substance use type: does not use Gender identity (if verbalized by the patient): Female Spiritual care concerns: No Exam Narrative: General appearance: Well-developed, well-nourished Skin: Normal color Head: Normocephalic, nontraumatic Eyes: Clear conjunctiva ENT: Oropharynx normal, ears normal, nose normal Neck: Supple, nontender Chest and respiratory: Airway patent, no respiratory distress, no accessory muscle use Heart: Regular rate/rhythm Abdomen: Soft, slight tenderness right lower quadrant, no guarding or rebound, no organomegaly, quiet bowel sounds Vascular: Normal peripheral pulses, normal capillary refill. 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, no gross motor deficit Course Vital Signs Vital signs: Vital Signs Temperature 36.7 C 05/23/22 11:11 Pulse Rate 72 05/23/22 11:11 Respiratory Rate 14 05/23/22 11:11 Blood Pressure 133/86 05/23/22 11:11 Pulse Oximetry 100 05/23/22 11:11 Oxygen Delivery Room Air 05/23/22 11:11 Temperature 36.7 C 05/23/22 11:11 Pulse Rate 68 05/23/22 12:18 Respiratory Rate 18 05/23/22 12:18 Blood Pressure 121/77 05/23/22 12:18 Pulse Oximetry 100 05/23/22 12:18 Oxygen Delivery Room Air 05/23/22 11:37 MDM - Abdominal Pain Differential Diagnosis Differential diagnosis: Likely abdominal pain, acute appendicitis, constipation, diverticulitis and pancreatitis Lab Data Result diagrams: 05/23/22 11:01 05/23/22 11:01 Labs: Lab Results 05/23/22 05/23/22 05/23/22 Range/Units 11:01 11:01 11:11 WBC 8.5 (4.5-10.0) K/mm3 RBC 4.59 (4.2-5.4) M/mm3 Hgb 13.3 (12.0-15.0) g/dL Hct 38.5 (37.0-47.0) % MCV 83.9 (80-100) fl MCH 29.0 (26-34) pg MCHC 34.5 (32-36) g/dl RDW 13.0 (11.5-14.5) % Plt Count 203 (150-375) k/mm3 MPV 10.6 H (7.4-10.4) fl Immature Gran % (Auto) 0.2 (0-0.5) % Neut % (Auto)
[2022-05-23 11:45] LABS: Add Urine Microscopic? YES
[2022-05-23 12:18] VITALS: BP 121/77; PULSE 68; RESP 18; O2SAT 100
[2022-05-23 14:30] VITALS: BP 107/69; PULSE 61; RESP 16; O2SAT 100
== END 2022-05-23 14:30 | disposition home or self-care (01) ==
PROVIDERS: Emergency Provider Emergency Medicine; PCP Physician Assistant
DX: R10.31 Right lower quadrant pain (principal); F41.9 Anxiety disorder, unspecified; K21.9 Gastro-esophageal reflux disease without esophagitis
CPT/HCPCS: 36415; 74177; 80053; 81001; 81025; 83690; 85025; 99284; Q9967

== ENCOUNTER 2023-12-27 20:32 | Emergency (ER) | payer OTHER, SELFPAY ==
[2023-12-27] VITALS (14 sets, daily range): BP systolic 124–139; BP diastolic 86–92; PULSE 66–91; RESP 14–21; TEMP 36.9; O2SAT 98–100
--- NOTE | ~2023-12-27 | XR_ITS ---
XR chest 2V Ordering provider: Esvin Madera MD History: 38 years Female with . chest pain . Comparison: September 28, 2021 FINDINGS: MEDIASTINUM: The cardiac silhouette is not enlarged. LUNGS: No infiltrates, effusions or pneumothorax. OTHER: No free air under the diaphragm. IMPRESSION: No acute cardiopulmonary pathology. Reviewed, dictated and finalized at location A.
--- NOTE | 2023-12-27 20:34 | ECG_ITS ---
Test Date: 2023-12-27 20:41:24 Measurements Intervals [place] Rate: 82 P: 9 WI: 161 QRS: 24 QRSD: 88 T: 27 QT: 351 QTc: 410 Interpretive Statements SINUS RHYTHM NORMAL ELECTROCARDIOGRAM No previous ECG available for comparison Electronically Signed On 12-28-2023 08:01:27 CDT by Ishmael Fortune M.D.
[2023-12-27 20:49] LABS: Basophils Percent Auto 0.3 % (0.2-1.2); Eosinophils Absolute Auto 0.1 K/mm3 (0-0.3); Eosinophils Percent Auto 0.8 % (0-4.4); Hematocrit 37.1 % (37.0-47.0); Hemoglobin 12.8 g/dL (12.0-15.0); Immature Granulocyte Absolute 0.02 K/mm3 (0.00-0.031); Immature Granulocyte Percent A 0.2 % (0-0.5); Lymphocytes Absolute Auto 3.52 K/mm3 (0.9-3.2); Mean Corpuscular HGB Conc 34.5 g/dl (32-36); Mean Corpuscular Hemoglobin 29.4 pg (26-34); Mean Corpuscular Volume 85.1 fl (80-100); Mean Platelet Volume 10.1 fl (7.4-10.4); Monocytes Absolute Auto 0.5 K/mm3 (0.1-0.6); Monocytes Percent Auto 5.4 % (2.6-8.5); Neutrophils Absolute Auto 5.4 K/mm3 (1.3-6.7); Neutrophils Percent Auto 56.3 % (45.5-73.1); Platelet Count Result 204 k/mm3 (150-375); Red Blood Count 4.36 M/mm3 (4.2-5.4); Red Cell Distribution Width 13.9 % (11.5-14.5); White Blood Count 9.5 K/mm3 (4.5-10.0)
[2023-12-27 20:59] LABS: Alanine Aminotransferase 24 U/L (6-35); Albumin Level 4.9 g/dL (3.5-5.1); Alkaline Phosphatase 57 U/L (38-126); Anion Gap 8 mmol/L (4-12); Aspartate Amino Transferase 30 U/L (14-36); Bilirubin,Total 0.8 mg/dL (0.2-1.3); Blood Urea Nitrogen 13 mg/dL (7-17); Calcium 9.2 mg/dL (8.4-10.2); Carbon Dioxide 24 mmol/L (22-30); Chloride 105 mmol/L (98-107); Estimated CRCL calculation 82 ml/min; Estimated Glomerular Filt Rate > 60; Glucose 95 mg/dL (65-110); Lipase 101 U/L (23-300); Potassium 3.8 mmol/L (3.4-5.0); Sodium 137 mmol/L (137-145)
[2023-12-27 21:02] LABS: Partial Thromboplastin Time 31.9 Seconds (22.3-36.8)
[2023-12-27 21:11] LABS: Troponin I < 0.012 ng/mL (0.000-0.034)
[2023-12-27] MEDS: ASPIRIN 81 MG CHEWABLE TABLET 324 MG PO (22:56)
[2023-12-27 22:57] LABS: NT Pro B Type Natriuretic Pept < 20 pg/mL (19.9-100)
[2023-12-28] VITALS (9 sets, daily range): BP systolic 117–132; BP diastolic 72–79; PULSE 68–84; RESP 16–23; O2SAT 96–100
[2023-12-28 00:23] LABS: Troponin I < 0.012 ng/mL (0.000-0.034)
--- NOTE | 2023-12-28 00:49 | ED.GENADULT ---
HPI - General Adult General Chief complaint: Chest Pain Stated complaint: chest pain 3 days Time Seen by Provider: 12/27/23 21:59 History of Present Illness HPI narrative: Patient is a 38-year-old female who presents emergency department chief complaint of chest pain. Patient reports having pain in the left side of her chest been intermittent for the last 3 days. The patient reports aching like pain a 5/10. Patient reports no cough denies trauma patient reports no prior history of connective tissue disorder. Related Data Home Medications Medication Instructions Recorded Confirmed acetaminophen 325 mg tablet 325 mg PO PRN PRN Pain 02/16/22 02/16/22 (Tylenol) Allergies Allergy/AdvReac Type Severity Reaction Status Date / Time No Known Allergies Allergy Verified 12/27/23 20:34 Review of Systems Review of Systems: A 10 system review of systems was completed on the patient and is negative except for what is stated in the HPI. Nursing and ancillary documentation was reviewed. PMFSH Past Medical History Medical History Anxiety GERD (gastroesophageal reflux disease) PCOS (polycystic ovarian syndrome) Surgical History Surgical History History of History of cholecystectomy Family History Family History Grandparent Hypertension Cerebrovascular accident Other Family history of type 2 diabetes mellitus Social History Social History Smoking status: Former smoker Smoking end date: 07/08/13 Alcohol intake: never Substance use: never Substance use type: does not use Living arrangements: with family Gender identity (if verbalized by the patient): Female Spiritual care concerns: No Exam Narrative: GENERAL: Well-appearing, well-nourished, and in no acute distress. HEAD: Normocephalic, atraumatic. EYES: PERRLA and EOMI. ENT: Nares clear, no rhinorrhea or epistaxis. Mucous membranes moist. NECK: Supple. CHEST: Clear to auscultation. No respiratory distress. Mild tenderness to palpation in the left sternal border on the anterior chest HEART: Regular rate and rhythm. No murmur heard. Normal peripheral pulses. ABDOMEN: Soft, nontender, nondistended, normal active bowel sounds. EXTREMITIES: Normal range of motion. No edema. SKIN: Warm, dry, no rash. NEURO: No focal deficits. Alert and oriented x3. PSYCH: Normal mood and affect. Course Vital Signs Vital signs: Vital Signs Temperature 36.9 C 12/27/23 20:35 Pulse Rate 91 12/27/23 20:35 Respiratory Rate 18 12/27/23 20:35 Blood Pressure 139/91 H 12/27/23 20:35 Pulse Oximetry 100 12/27/23 20:35 Oxygen Delivery Room Air 12/27/23 20:35 Temperature 36.9 C 12/27/23 20:35 Pulse Rate 72 12/27/23 22:48 Respiratory Rate 14 12/27/23 22:48 Blood Pressure 137/86 12/27/23 22:48 Pulse Oximetry 99 12/27/23 22:48 Oxygen Delivery Room Air 12/27/23 20:35 Medical Decision Making MDM Narrative Medical decision making narrative: Differential diagnosis includes ACS, noncardiac chest pain, chest wall pain, gastroesophageal reflux disease, CHF, Chest x-ray showed no focal infiltrates or widened mediastinum no pneumothorax Laboratory studies were obtained showed normal CBC normal CMP lipase was normal troponin is 0 hour and 3 hour BNP was EKG showed no acute ischemic changes Vital Signs Vital Signs: Vital Signs Temperature 36.9 C 12/27/23 20:35 Pulse Rate 91 12/27/23 20:35 Respiratory Rate 18 12/27/23 20:35 Blood Pressure 139/91 H 12/27/23 20:35 Pulse Oximetry 100 12/27/23 20:35 Oxygen Delivery Room Air 12/27/23 20:35 Temperature 36.9 C 12/27/23 20:35 Pulse Rate 72 12/27/23 22:48 Respiratory Rate 14
== END 2023-12-28 01:28 | disposition home or self-care (01) ==
PROVIDERS: Emergency Provider Emergency Medicine; PCP Physician Assistant
DX: R07.89 Other chest pain (principal); K21.9 Gastro-esophageal reflux disease without esophagitis; E28.2 Polycystic ovarian syndrome; Z90.49 Acquired absence of other specified parts of digestive tract; Z87.891 Personal history of nicotine dependence
CPT/HCPCS: 36415; 71046; 80053; 83690; 83880; 84484; 85025; 85610; 85730; 93005; 99284; A9270

== ENCOUNTER 2024-01-27 16:39 | Emergency (ER) | payer OTHER, SELFPAY ==
[2024-01-27 16:44] VITALS: BP 134/85; PULSE 88; RESP 20; TEMP 36.5; O2SAT 100
[2024-01-27 17:36] LABS: Influenza A QL RT-PCR Negative (Negative); Influenza B QL RT-PCR Negative (Negative); RSV RNA, RT-PCR Negative (Negative); SARS-CoV-2 RNA PCR Negative (Negative)
--- NOTE | 2024-01-27 20:05 | ED.URI ---
HPI - URI/Sore Throat General Chief Complaint: Upper Respiratory Infection Stated Complaint: HERRERA, n/v, body aches, lightheadedness Time Seen by Provider: 01/27/24 18:19 History of Present Illness HPI Narrative: Patient is a 38-year-old female presenting with multiple complaints. States that she has been having an intermittent headache, body aches, nausea, decreased appetite. States that she has also been experiencing ?brain fog?. States that she was feeling like she was drunk while she was driving even though she has not been drinking. She is concerned about concentrating at work. She denies chest pain, shortness of breath, leg swelling. No abdominal pain, dysuria, hematuria. Related Data Home Medications Medication Instructions Recorded Confirmed acetaminophen 325 mg tablet 325 mg PO PRN PRN Pain 02/16/22 02/16/22 (Tylenol) Allergies Allergy/AdvReac Type Severity Reaction Status Date / Time No Known Allergies Allergy Verified 12/27/23 20:34 Review of Systems Review of Systems: All systems reviewed & are unremarkable except as noted in HPI and below PMFSH Past Medical History Medical History Anxiety GERD (gastroesophageal reflux disease) PCOS (polycystic ovarian syndrome) Surgical History Surgical History History of History of cholecystectomy Family History Family History Grandparent Hypertension Cerebrovascular accident Other Family history of type 2 diabetes mellitus Social History Social History Smoking status: Former smoker Smoking end date: 07/08/13 Alcohol intake: never Substance use: never Substance use type: does not use Living arrangements: with family Gender identity (if verbalized by the patient): Female Spiritual care concerns: No Exam Narrative: GENERAL: Well-appearing, in no acute distress, pleasant and cooperative HEAD: Normocephalic, atraumatic. EYES: PERRLA and EOMI. ENT: Mucous membranes moist. NECK: Supple. CHEST: Clear to auscultation. No respiratory distress. HEART: Regular rate and rhythm ABDOMEN: Soft, nontender, nondistended EXTREMITIES: Normal range of motion. SKIN: Warm, dry, no rash. NEURO: No focal deficits. Alert and oriented x3. PSYCH: Normal mood and affect. Course Vital Signs Vital signs: Vital Signs Temperature 97.7 F 01/27/24 16:44 Pulse Rate 88 01/27/24 16:44 Respiratory Rate 20 01/27/24 16:44 Blood Pressure 134/85 01/27/24 16:44 Pulse Oximetry 100 01/27/24 16:44 Oxygen Delivery Room Air 01/27/24 16:44 Temperature 97.7 F 01/27/24 16:44 Pulse Rate 78 01/27/24 22:27 Respiratory Rate 18 01/27/24 22:27 Blood Pressure 143/76 H 01/27/24 22:27 Pulse Oximetry 100 01/27/24 22:27 Oxygen Delivery Room Air 01/27/24 17:57 MDM - URI/Sore Throat MDM Narrative Medical decision making narrative: 38-year-old female presenting with viral symptoms. Vitals are stable. Patient is well-appearing and in no acute distress. Negative for influenza, COVID. Blood work with mild leukocytosis. No other acute abnormalities appreciated. Suspect patient's symptoms are related to viral syndrome. Will she is safe for outpatient management with supportive care. Advised PCP follow-up. Appropriate return precautions given. Patient is agreeable this plan. Discharged in stable condition. Differential Diagnosis Differential diagnosis: Likely upper respiratory infection, viral infection and influenza Medical Records Attestation: I reviewed the patient's medical records. Lab Data Attestation: I reviewed the patient's lab results. 01/27/24 21:17 01/27/24 21:17 Labs: Lab Results 01/27/24 01/27/24 01/27/24 Range/Units 16:43 21:17
[2024-01-27] MEDS: ONDANSETRON INJ 4 MG/2 ML VIAL IV PUSH (21:13)
[2024-01-27] MEDS: SODIUM CHLORIDE 0.9% IV 1,000 ML 999 ML IV CONT (21:13)
[2024-01-27] MEDS: KETOROLAC 30 MG/ML VIAL (*BKC) IV PUSH (21:14)
[2024-01-27 21:24] LABS: Basophils Percent Auto 0.3 % (0.2-1.2); Eosinophils Absolute Auto 0.1 K/mm3 (0-0.3); Eosinophils Percent Auto 1.2 % (0-4.4); Hematocrit 38.1 % (37.0-47.0); Immature Granulocyte Absolute 0.03 K/mm3 (0.00-0.031); Immature Granulocyte Percent A 0.3 % (0-0.5); Lymphocytes Absolute Auto 3.58 K/mm3 (0.9-3.2); Lymphocytes Percent Auto 32.6 % (18.3-44.2); Mean Corpuscular HGB Conc 34.1 g/dl (32-36); Mean Corpuscular Hemoglobin 29.1 pg (26-34); Mean Corpuscular Volume 85.4 fl (80-100); Mean Platelet Volume 10.4 fl (7.4-10.4); Monocytes Absolute Auto 0.5 K/mm3 (0.1-0.6); Monocytes Percent Auto 4.6 % (2.6-8.5); Neutrophils Absolute Auto 6.7 K/mm3 (1.3-6.7); Platelet Count Result 218 k/mm3 (150-375); Red Blood Count 4.46 M/mm3 (4.2-5.4); Red Cell Distribution Width 13.5 % (11.5-14.5)
[2024-01-27 21:35] LABS: Alanine Aminotransferase 46 U/L (6-35); Albumin Level 4.7 g/dL (3.5-5.1); Alkaline Phosphatase 66 U/L (38-126); Anion Gap 10 mmol/L (4-12); Aspartate Amino Transferase 35 U/L (14-36); Bilirubin,Total 0.6 mg/dL (0.2-1.3); Blood Urea Nitrogen 6 mg/dL (7-17); Carbon Dioxide 24 mmol/L (22-30); Chloride 103 mmol/L (98-107); Estimated CRCL calculation 82 ml/min; Estimated Glomerular Filt Rate > 60; Glucose 95 mg/dL (65-110); Lipase 85 U/L (23-300); Potassium 3.8 mmol/L (3.4-5.0); Sodium 137 mmol/L (137-145)
[2024-01-27 22:15] LABS: Appearance Urine Cloudy (Clear); Bacteria Urine 3+ /hpf; Bilirubin Urine Negative (Negative); Blood Urine Negative (Negative); Color Urine Dark Yellow (Yellow); Glucose Urine UA Negative (Negative); Ketones Urine Trace mg/dL (Negative); Leukocyte Esterase Ur Trace LEU/UL (Negative); Mucus Urine Present /lpf; Need Manual Microscopic Reviewed; Nitrate Urine Negative (Negative); Non Pathogenic Casts 0-2; Protein Urine Negative (Negative); RBC Urine 0-2 /hpf (0-2); Specific Grav Ur 1.025 (1.001-1.035); Squamous Epithelial Cell Urine Few /hpf (Few); pH Urine 5.5 (5.0-9.0)
[2024-01-27 22:16] LABS: Add Urine Microscopic? YES
[2024-01-27 22:27] VITALS: BP 143/76; PULSE 78; RESP 18; O2SAT 100
== END 2024-01-27 22:28 | disposition home or self-care (01) ==
PROVIDERS: Physician Assistant; Emergency Provider Emergency Medicine; PCP Physician Assistant
DX: B34.9 Viral infection, unspecified (principal); Z20.822 Contact with and (suspected) exposure to COVID-19; E28.2 Polycystic ovarian syndrome; K21.9 Gastro-esophageal reflux disease without esophagitis; Z90.49 Acquired absence of other specified parts of digestive tract; Z87.891 Personal history of nicotine dependence
CPT/HCPCS: 36415; 80053; 81001; 83690; 85025; 87086; 87637; 96361; 96374; 96375; 99284; J1885; J2405; J7030

== ENCOUNTER 2024-09-09 09:11 | Outpatient (CLI) | payer OTHER, SELFPAY ==
--- NOTE | ~2024-09-09 | US_ITS ---
EXAMINATION: US renal BI DATE: 09/09/2024 10:03 INDICATION: Neck kidney disease TECHNIQUE: Multiple ultrasound grayscale images of the kidneys were obtained. COMPARISON: None. FINDINGS: The right kidney measures 10.1 x 4.5 x 6.3 cm. The left kidney measures 10.7 x 5.5 x 5.9 cm. The kidn eys demonstrate normal echogenicity. There is no hydronephrosis in either kidney. No stones identifi ed. The bladder is normal with bilateral ureteral jets seen on color Doppler. IMPRESSION: 1. Normal kidneys without hydronephrosis. Reviewed, dictated and finalized at location B. [facility]
--- OUTSIDE RECORDS SUMMARY | 2024-09-09 09:47 | XMS_ITS | Data Portability ---
Author Organization [facility] Address [address] [place] [address] [place] [address] Care Team Providers Care Complaint Specialist Name Role Phone MANUEL CHRISTIAN Primary Care Provider [phone] Assessment Encounter Date Assessment Date Assessment LastModified by Organization Details LastModified Time 06/02/2024 06/02/2024 Annual gynecological exam performed. Patient will come back in a year unless there are new symptoms. [email or web address] Not available 06/02/2024 14:50:52 Plan of Treatment Reminders Order Date Submit Date Provider Last Modified By Organization Details Last Modified Time Details Appointments None recorded. Lab pap, IG + HR HPV - HPV regardless but if HPV is positive need subtyping 16,18/45Add CT/GC/Trich 2023 [facility] (Lab), [address], [place], [address], 4 12:56:42 Referral None recorded. Procedures None recorded. Surgeries None recorded. Imaging MAMMO, diagnostic, digital, unilateral 2023 [facility], [address], [address], [place], [address], 04:02:19 Medication Orders None recorded. Patient TargetsNo targets recorded. Patient InstructionsNo instructions recorded. Reason for Referral None Reported. Results Created Date Observation Date Name Description Value Unit Range Abnormal Flag Note LastModifiedBy Organization Detail LastModifiedTime 06/02/20 24 06/02/2024 IMAGE GUIDE D PAP AND HPV REGAR DLESS image guided Pap, HPV regardless of Pap result SEE RESULT S BELOW CASE REPOR T: Cytol ogy Gynec ologi kierra Repor t Case: [id number] Autho kb montes Provi rosio: Samantha Sherman , ANP, PRECISION AGRICULTURE TECHNICIAN Colle cted: 06/02 1529 Order ing Locat ion: [place] [facility] Recei jp: 06/03 1112 First Scree n: Dariusz Sy, CT Speci men: Kim galindo Pap - Image d, Cervi x STATE MENT OF ADEQU ACY: Satis facto ry for evalu ation Trans forma tion zone compo nent prese nt ----- ----- ----- ----- ----- ----- ----- ----- ----- ----- ----- ----- ----- ----- ----- ----- ----- ---- FINAL DIAGN OSIS: Negat ariela for Intra epith elial Leszita todd or Katlyn oneil (NIL) . Elect vikram lawson maryann d by Dariusz Sy, CT on 2023 at 11:53 AM ----- ----- ----- ----- ----- ----- ----- ----- ----- ----- ----- ----- ----- ----- ----- ----- ----- ---- HPV RESUL TS: HPV mRNA E6/E7 : No HPV mRNA Detec ashley NOTE: This high risk HPV mRNA assay detec ts fourt een high- risk HPV types (16, 18, 31, 33, 35, 39, 45, 51, 52, 56, 58, 59, 66, 68) witho ut diffe renti ation . COMME NT: This speci men was revie wed by a Cytot echno logis t and/o r Patho logis t (as indic ated in this repor t) after evalu ation using the Thinp rep Imagi ng Syste m. CLINI KIERRA INFOR MATIO N: Menst rual Statu s: LMP (if appli cable ): Clini kierra Histo ry/Pr eviou s Pap: Type of Neopl sulema (if appli cable ): Signi fican t Clini kierra Findi ngs: Other Histo ry: Hormo eugenio (if appli cable ): PAP EDUCA ADDIS L NOTE: The Pap Test is a scree mateo test with an inher ent false negat ariela rate. Liqui d-bas ed sampl ing may decre ase, but will not elimi willis, false negat ariela resul ts. A negat ariela resul t does not precl ude the prese nce and/o r devel opmen t of disea se, since the prese nce of abnor mal cells in the sampl e depen ds on the locat ion of the lesio n and sampl ing techn ique. Susan nued regul ar scree mateo is the best metho d of cance r preve ntion . If repor ashley cytol ogic findi ng do not corre late with physi kierra and/o r histo rical findi ngs, furth er inves tigat ion is recom lorne d, as clini ricardo warrdavid nted. Not Available [facility] (Lab) [address], [place], [address], 06/13/2024 12:56:42 06/02/20 24 06/02/2024 TRICH OMONA S VAGIN KOLTON (RRNA ) trichomonas vaginalis ribosomal RNA (rrna) Negati ve negati ve Not Available [facility] (Lab) [address], [place], [address], 06/13/2024 12:56:43 06/02/20 24 06/02/2024 CT/GC (KE) , THINP REP VIAL chlamydia trachomatis, PCR Negati ve negati ve Not Available [facility] (Lab) [address], [place], [address], 06/13/2024 12:56:43 06/02/20 24 06/02/2024 CT/GC (KE) , THINP REP VIAL neisseria gonorrhoeae, PCR Negati ve negati ve Not Available [facility] (Lab) [address], [place], [address], 06/13/2024 12:56:43 Result Notes None recorded. Procedures Surgical History Date Name Laterality Status Provider Name and Address Organization Details Recorded Time IUD Insertion completed SAMANTHA MORGAN, JONAS [address], [place], [address], [facility] 06/11/2024 12:12:41 024 Date of Last Pap Smear completed Teresa Gentile [facility] 07/14/2024 11:31:40 008 Caesarean Section completed [facility] 06/02/2024 14:51:34 Cholecystectomy completed [facility] 06/02/2024 14:51:34 Imaging Results None recorded. Procedure Notes None recorded. Medical Equipment None Reported. Allergies No known drug allergies Medications Name Sig Start Date Stop Date Status Note LastModified by Organization Details LastModified Time status covid-19/fl u a-b antigen tst TEST DIRECTED TODAY 06/02 completed Not Available Not Available Not Available lisinopril 10 mg tablet TAKE 1 TABLET BY MOUTH EVERY DAY 06/02 completed Not Available Not Available Not Available ketoconazol e 2 % topical cream APPLY TOPICALLY TO THE AFFECTED AREA TWICE DAILY FOR 2 WEEKS 06/02 completed Not Available Not Available Not Available ondansetron 4 mg disintegrat ing tablet TAKE 1 TABLET BY MOUTH EVERY 6-8 HOURS NEEDED 06/02 completed Not Available Not Available Not Available ParaGard T 380A 380 square mm intrauterin e device Take 1 device by intrauter ine route. 2023 active Not Available Not Available Not Avai lable BinaxNOW COVID-19 Ag Self Test kit TEST DIRECTED TODAY 06/02 completed Not Available Not Available Not Available Vitals Date Recorded Body height Body mass index (BMI) Body weight Systolic blood pressure Diastolic blood pressure Provider Name and Address Organization Details Last Updated DateTime 06/02/2024 165.1 cm 31.5 kg/m2 04640.96 g 131 mm[Hg] 82 mm[Hg] [facility] 14:57:19 Date Recorded Body height Body mass index (BMI) Body weight Systolic blood pressure Diastolic blood pressure Provider Name and Address Organization Details Last Updated DateTime 06/11/2024 165.1 cm 31.3 kg/m2 46911.37 g 137 mm[Hg] 84 mm[Hg] [facility] 4 11:47:41 Date Recorded Body height Body mass index (BMI) Body weight Systolic blood pressure Diastolic blood pressure Provider Name and Address Organization Details Last Updated DateTime 07/14/2024 165.1 cm 31.8 kg/m2 19918.14 g 123 mm[Hg] 80 mm[Hg] Teresa Gentile [facility] 5 11:31:17 Social History Question Answer Notes LastModified by Organizat ion Details LastModified Time Tobacco Smoking Status Never [facility]oker [facility] 06/02/2024 14:59:51 Do You Have An Advance Directive? No [email or web address] Information n ot available 06/02/2024 What Is Your Level Of Alcohol Consumption? Occasional [email or web address] Information not available 06/02/2024 Are You Blind Or Do You Have Difficulty Seeing? No [email or web address] Information n ot available 06/02/2024 What Is Your Level Of Caffeine Consumption? Moderate [email or web address] Information not available 06/02/2024 In The 14 Days Before Symptom Onset, Have You Had Close Contact With A Laboratory-confirm ed COVID-19 While That Case Was Ill? No [email or web address] Information n ot available 06/02/2024 In The 14 Days Before Symptom Onset, Have You Had Close Contact With A Person Who Is Under Investigation For COVID-19 While That Person Was Ill? No [email or web address] Information not available 06/02/2024 Have You Been To An Area Known To Be High Risk For COVID-19? No [email or web address] Information not available 06/02/2024 Are You Currently Employed? Yes [email or web address] Information not available 06/02/2024 Are You Deaf Or Do You Have Serious Difficulty Hearing? No [email or web address] Information not available 06/02/2024 What Type Of Diet Are You Following? REGULAR [email or web address] Information n ot available 06/02/2024 What Is The Highest Grade Or Level Of School You Have Completed Or The Highest Degree You Have Received? 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 No [email or web address] Information not available 06/02/2024 Do You Use Protection During Sex? Always [email or web address] Information not available 06/02/2024 Do You Use Your Seat Belt Or Car Seat Routinely? Yes Information not available 06/02/2024 Are You Sexually Active? Yes [email or web address] Information not available 06/02/2024 Do You Have Smoke And Carbon Monoxide Detectors In Your Home? Yes [email or web address] Information not available 06/02/2024 How Much Tobacco Do You Smoke? No Information not available 06/02/2024 Do You Feel Stressed (tense, Restless, Nervous, Or Anxious, Or Unable To Sleep At Night)? [id number] Information not available 06/02/2024 Do You Use Any Illicit Or Recreational Drugs? No Information not available 06/02/2024 Do You Use Sunscreen Routinely? No [email or web address] Information not available 06/02/2024 Have You Used IV Drugs? No [email or web address] Information not available 06/02/2024 Sex: Unknown Functional Status Question Answer Note LastModified by Organizat ion Details LastModified Time Do you have difficulty walking or climbing stairs? No Information not available 06/02/2024 Are you able to walk? YESWOREST [email or web address] Information not available 06/02/2024 Are you able to care for yourself? Yes [email or web address] Information not available 06/02/2024 Do you have difficulty dressing or bathing? No [email or web address] Information not available 06/02/2024 What is your exercise level? Moderate [email or web address] Information not available 06/02/2024 Mental Status None recorded. Family History Relationship Description Onset Age of this Age Resolved Age Notes LastModified by Organization Details LastModified Time Maternal Uncle Malignant tumor of lung [email or web address] Not available 2023 14:59:22 Unspecified Relation Diabetes mellitus Mom's side of the family [email or web address] Not available 06/02/2024 14:59:44 Medical History Condition Response Heart Problems Y Acid Reflux (GERD) Y Headaches Y Polycystic ovary syndrome Y Gynecological History Statement/Question Response Flow Moderate Date of LMP 06/29/2024 N Was last menstrual period normal Y STIs/STDs N Duration of Flow (days) 7 Current Control Method IUD Are cycles usually normal Y Frequency of Cycle (Q days) 28 Sexually Active? N IUD Menses Monthly Y Age of first menstrual cycle 15 Date of Last Pap Smear 06/02/2024 Sexual Problems? N Desired Control Method IUD LMP Definite N Obstetrics History GPAL:G 4 P 1 0 3 1 Type Value Full Term 1 Spontaneous 3 Living 1 Total 4 Past Encounters Encounter ID Performer Location Encounter Start Date Encounter Closed Date Diagnosis/Indication Diagnosis SNOMED-CT Code Diagnosis ICD10 Code Diagnosis Note [id number] SAMANTHA MORGAN, JONAS [address] [address] 06/02/2024 14:43:31 06/02/2024 17:22:24 Gynecologic examination 06028737 Z01.419 Annual gynecologi kierra exam performed. Patient will come back in a year unless there are new symptoms. Suggest Calcium with Vitamin D if not eating in diet. Patient advised to get annual flu shot. Recommend yearly physicals and perform monthly breast exams. Genetic testing is available for patients with family history of cancer. Engage in safe sexual practices, use condoms. Encouraged to have daily exercise. Avoid tobacco and illicit drugs, moderation of alcohol. If BMI greater than 25 dietary consult advised. If you have any questions please call or email. mammogram- ordered diagnostic mammogram of left breast with ultrasound if needed to r/o malignant causes of reported breast/antoine st wall pain. colon cancer screening - n/a DEXA scan- n/a Pap smear- pap w/ HPV collected today laboratory evaluation - PCP STI testing - requested Pain of breast 76068475 N64.4 Dx mammo ordered to evaluate left breast pain.Recom mended well-fitti ng sports bra. Recommende d vitamin E supplement 400-600 IU once or twice daily to help with breast tenderness .Patient advised to perform self-breas t exams and report any changes. Contracept ion care management 648473029 Z30.9 Discussed the risks, benefits, and alternativ es to Mirena IUD. Discussed insertion and removal process. Discussed bleeding profile. Questions answered. Will schedule insertion with menses. [id number] Dang Betts [facility] [address] [address] 06/11/2024 11:24:58 06/11/2024 12:15:29 Insertion of intrauterine contraceptive device 41567066 Z30.430 She has been counseled on all of the r/b/a of placement of an intrauteri ne device that include but are not limited to uterine perforatio n, injury to cervix, vagina, bladder, and bowel.Risk s of bleeding due to injury or increased irregular bleeding due to progestin effect of the device. Risks of infection would be increased within the first 21 days of placement with concomitan t cervicitis . She understand s that the device will need to be removed in this instance due to increased risk of Pelvic inflammato ry disease. Patient is aware she is at higher risk for STD and if contracted she could lose her fertility. Pt is aware that if occurs that she should contact office immediatel y to rule out ectopic which could be life threatenin g. IUD will also need to be removed and this could cause miscarriag e. Patient also informed that in the event her strings are absent or embedded at the time of removal she may need to have the IUD surgically removed. She was informed of the above and properly consented. Paragard IUD placed w/o complicati on. Patient should return to office after next period to check for string placement. Patient to expect irregular bleeding but should be seen in the ED if bleeding increases to soaking a pad an hour for at least 2 hours. She verbalized understand ing. [id number] SAMANTHA MORGAN NP [facility] [address] [address] 07/14/2024 11:21:28 07/14/2024 11:44:41 Contraception care management 901786990 Z30.9 - Paragard IUD placed 06/11/24, due for removal 06/11/34- no issues at this time- continue to monitor for worsening cramping and/or heavier periods- discussed safe sex practices- RTO for next well woman exam or sooner if needed Health Concerns Section Related Observation LastModified by Organization Detai ls LastModified Time None Recorded Concern Status LastModified by Organization Details LastModified Time None Recorded Advance Directives Directive N: Payers Encounter Date Sequence Insurance Name Policy Number Policy Galindo Covered Member ID Galindo Member ID Guarantor Name 06/02/2024 1 [facility] [id number] Tamela Wood [id number] Tamela Wood 06/11/2024 1 [facility] [id number] Tamela Wood [id number] 1 Tamela Wood 07/14/2024 1 [facility] [id number] Tamela Israel [id number] Tamela Israel Notes Date Note Type Note Provider Name and Address Organization Details Recorded Time 06/02/2024 text/html Annual GYNReport ed bypatient.Menstrua l cycle:Normal menses Urinary symptoms:No hematuria; No incontinence Vulva:No genital lesion Vagina:Normal vaginal discharge Breast:No breast lump; No nipple discharge;Breast pain Current Contraception:Cond oms Sexual complaints:No sexual complaints; No pain during intercourse; Normal libido Menopausal Symptoms:No menopausal symptoms; Normal vaginal lubrication Psychological symptoms:No depression; No anxiety; No PMDD Preventive measures:Encourage self breast examination; Encourage regular exercise; Encourage no tobacco use; Encourage regular mammograms starting age 40 New patient presents to establish care.Considering IUD for control.Patient reports dull aching pain that occurs across left breast intermittently. Patient states that pain can be relieved when lifting up breasts. Patient had cardiac workup and GI workup since pain radiates from sternum across breast to left shoulder/side on occasion. Patient states that this has been occurring since 2021. Denies family history of breast cancer. Denies nipple discharge, breast lumps, or skin changes. SAMANTHA MORGAN NP [address], [place], [address], [facility] 06/02/2024 17:21:53 06/11/2024 text/html Patient presents for paragard IUD insertion. Informed consent obtained prior to procedure. Dang sarabia, [facility] 06/11/2024 12:38:51 07/14/2024 text/html Presents today f or IUD check. Had Paragard IUD placed 06/11/24. Has had no issues since insertion. Patient has had cramping with her most recent period. She is overall happy with the Paragard IUD. SAMANTHA MORGAN, JONAS [address], [place], [address], [facility] 07/14/2024 11:43:54 OBGyn Episode Ob Episode Information Episode Created Date Number of Fetuses Patient Bloodtype Patient rh Status Prepregnancy Weight lbs Domestic Partner Domestic Partner Phone Father Name Manager Wastewater Status 06/02/20 24 1 CLOSED Fetus Data First Name Last Name Admitted to NICU Weight (g) Sex Living Outcome Pediatric Complications Fetus ID Race Codes Race Delivery Type 3175.14 4 F Full Term [id number] Primary Adis Calculation Initial Adis Date Initial Exam Date Initial Exam Provider Initial Ultrasound Date Last Menstrual Period Date Ultra Sound Weeks Gestation 0 Eighteen To Twenty Week Adis Update Ultra Sound Date Fundal Height At Umbil Quickening Date Ultra Sound Latest Weeks Gestation Final Adis Confirmed By Final Adis Confirmed Date Final Adis Date Ultra Sound Latest Days Gestation 0 0 Menstrual History Last Menstrual Date Menses Monthly On Bcp Conception Prior Menses Frequency Hcg Plus Date Menarche Onset Age Delivery Information Delivery Date Delivery Type Labor Anesthesia Weeks Gestation Incision Type Labor Labor Length Hrs Delivered By Post Complications Tubal Sterilization Discharge Date Comments 8 39 Discharge Information Feeding Method Contraceptive Method Maternal HG B and HCT Levels
--- OUTSIDE RECORDS SUMMARY | 2024-09-09 09:47 | XMS_ITS | Referral Summary ---
Author Organization [facility] [address] [facility] [address] Address [address] [place] [address] Care Team Providers Care Cruise Agent Name Role Phone Jenifer Puga Primary Care Provider + Encounters Date Type Department Care Team Description 09/07/2024 12:00 PM METAL TESTER Office Visit [facility] [address] [place] [address] Usman Moreno MD BATES (dyspnea on exertion) (Primary Dx); Other chest pain from Last 3 Months Allergies No known active allergies Medications meclizine (ANTIVERT) 25 mg tablet 04/13/2022 5 Discontinue d(Therapy completed) Active Problems Problem Noted Date Diagnosed Date Exercise counseling 10/06/2021 BATES (dyspnea on exertion) 09/01/2021 Other chest pain 09/01/2021 Social History Tobacco Use Types Packs/Day Years Used Date Smoking Tobacco: Never Smokeless Tobacco: Never Comments Unknown Sex and Gender Information Value Date Recorded Sex Assigned at Not on file Legal Sex Female 1:48 AM METAL TESTER Gender Identity Not on file Sexual Orientation Not on file Last Filed Vital Signs Vital Sign Reading Time Taken Comments Blood Pressure 124/68 09/07/2024 11:57 AM METAL TESTER Pulse 82 09/07/2024 11:57 AM METAL TESTER Temperature - - Respiratory Rate 18 09/01/2021 8:40 AM METAL TESTER Oxygen Saturation 98% 09/07/2024 11:57 AM METAL TESTER Inhaled Oxygen Concentration - - Weight 87.3 kg (192 lb 8 oz) 09/07/2024 11:57 AM METAL TESTER Height 165.1 cm (5' 5 ) 09/07/2024 11:57 AM METAL TESTER Body Mass Index 32.03 09/07/2024 11:57 AM METAL TESTER Plan of Treatment Not on file Procedures Procedure Name Priority Date/Time Associated Diagnosis Comments POCT LIPID PANEL Routine 09/07/2024 12:1 6 PM METAL TESTER BATES (dyspnea on exertion) from Last 3 Months Results * POCT lipid panel (09/07/2024 12:16 PM METAL TESTER) Cholesterol, POC 173 mg/dL HDL, POC 74 mg/dL Triglycerides, POC 241 mg/dL LDL Cholesterol POC 51 mg/dL Chol/HDL Ratio, POC 0.7 Non-HDL Cholesterol, POC 99 mg/dL Cholesterol Total, POC 173 mg/dL Capillary blood 09/07/2024 1 2:16 PM METAL TESTER Usman Moreno MD POINT OF CARE TEST O RDERABLES Final Result from Last 3 Months Insurance [facility] Care Teams Cruise Agent Relationship Specialty Start Date End Date Jenifer Puga PA PCP - General Physician Java Developer With Security Clearance 08/09/21
--- OUTSIDE RECORDS SUMMARY | 2024-09-09 09:47 | XMS_ITS | Clinical Summary ---
Author Organization [facility] [address] [facility] [address] Address [address] [place] [address] Care Team Providers Care Tire Mounter Name Role Phone Jenifer Puga Primary Care Provider + Allergies No known active allergies Medications meclizine (ANTIVERT) 25 mg tablet 04/13/2022 Discontinue d(Therapy completed) Active Problems Problem Noted Date Diagnosed Date Exercise counseling 10/06/2021 BATES (dyspnea on exertion) 09/01/2021 Other chest pain 09/01/2021 Encounters Date Type Department Care Team Description 09/07/2024 12:00 PM PHYSICIAN OBSTETRICIAN Office Visit [facility] [address] [facility] [address] [place] [address] Usman Moreno MD BATES (dyspnea on exertion) (Primary Dx); Other chest pain from Last 3 Months Surgical History Surgery Date Site/Laterality Comments CHOLECYSTECTOMY Medical History Medical History Date Comments Migraines Hyperlipidemia Polycystic bilateral ovaries Family History Medical History Relation Name Comments Cancer Mother's Brother Diabetes Mother's Brother Diabetes Mother's Sister Relation Name Status Comments Mother's Brother Mother's Sister Social History Tobacco Use Types Packs/Day Years Used Date Smoking Tobacco: Never Smokeless Tobacco: Never Comments Unknown Sex and Gender Information Value Date Recorded Sex Assigned at Not on file Legal Sex Female 1:48 AM PHYSICIAN OBSTETRICIAN Gender Identity Not on file Sexual Orientation Not on file Obstetrics History Last Filed Vital Signs Vital Sign Reading Time Taken Comments Blood Pressure 124/68 09/07/2024 11:57 AM PHYSICIAN OBSTETRICIAN Pulse 82 09/07/2024 11:57 AM PHYSICIAN OBSTETRICIAN Temperature - - Respiratory Rate 18 09/01/2021 8:40 AM PHYSICIAN OBSTETRICIAN Oxygen Saturation 98% 09/07/2024 11:57 AM PHYSICIAN OBSTETRICIAN Inhaled Oxygen Concentration - - Weight 87.3 kg (192 lb 8 oz) 09/07/2024 11:57 AM PHYSICIAN OBSTETRICIAN Height 165.1 cm (5' 5 ) 09/07/2024 11:57 AM PHYSICIAN OBSTETRICIAN Body Mass Index 32.03 09/07/2024 11:57 AM PHYSICIAN OBSTETRICIAN Plan of Treatment Health Maintenance Due Date Last Done Comments Cervical Cancer Screening 1986 Depression Screening 1986 Hepatitis C Screening 1986 DTaP/Tdap/Td Vaccine (1 - Tdap) 1997 Varicella Vaccines (1 of 2 - 13+ 2-dose series) 1999 Hepatitis B Screening 2004 Regular Well Visit/Exam 18-64 2004 Covid-19 Vaccine (3 - 2023-2 5 season) 2024 06/10/2021, 05/13/2021 Influenza Vaccine (#1) 2024 03/27/2020 HPV Vaccines Aged Out No longer eligi ble based on patient's age to complete this topic Pneumococcal vaccine <65 Aged Out No longer eligible based on patient's age to complete this topic Procedures Procedure Name Priority Date/Time Associated Diagnosis Comments POCT LIPID PANEL Routine 09/07/2024 12:1 6 PM PHYSICIAN OBSTETRICIAN BATES (dyspnea on exertion) from Last 3 Months Results * POCT lipid panel (09/07/2024 12:16 PM PHYSICIAN OBSTETRICIAN) Cholesterol, POC 173 mg/dL HDL, POC 74 mg/dL Triglycerides, POC 241 mg/dL LDL Cholesterol POC 51 mg/dL Chol/HDL Ratio, POC 0.7 Non-HDL Cholesterol, POC 99 mg/dL Cholesterol Total, POC 173 mg/dL Capillary blood 09/07/2024 1 2:16 PM PHYSICIAN OBSTETRICIAN us Usman Moreno MD POINT OF CARE TEST O RDERABLES Final Result from Last 3 Months Insurance [facility] [employer] Address: [facility] [id number] [place] [address] Care Teams Tire Mounter Relationship Specialty Start Date End Date Jenifer Puga PA PCP - General Physician Saturator Operator 08/09/21
--- OUTSIDE RECORDS SUMMARY | 2024-09-09 09:47 | XMS_ITS | Clinical Summary ---
Author Organization [facility] Address [address], [place] [address] Phone Care Team Providers Care Physical Therapist Name Role Phone Jenifer Puga Primary Care Provider [phone] Allergies No known active allergies Medications No known medications Active Problems Problem Noted Date Diagnosed Date Chronic kidney disease 07/21/2024 Hyperlipidemia 07/21/2024 Encounters Date Type Department Care Team Description 07/23/2024 3:00 PM HEADER SET UP OPERATOR Office Visit [facility] [address] [place] [id number] Cresencio Carlson MD Chronic kidney disease stage 2 (Primary Dx) from Last 3 Months Family History Medical History Relation Comments Cancer Relative Diabetes Relative Relation Status Comments Relative Alive maternal aunt - malignant tumor of breast and DM Social History Tobacco Use Types Packs/Day Years Used Date Smoking Tobacco: Never Smokeless Tobacco: Never Tobacco Cessation:Counseling Given: Not Answered Alcohol Use Standard Drinks/Week Comments Not Currently 0 (1 standard drink = 0.6 oz pur e alcohol) Sex and Gender Information Value Date Recorded Sex Assigned at Not on file Gender Identity Not on file Sexual Orientation Not on file Last Filed Vital Signs Vital Sign Reading Time Taken Comments Blood Pressure 133/79 07/23/2024 2:55 PM HEADER SET UP OPERATOR Pulse 90 07/23/2024 2:55 PM HEADER SET UP OPERATOR Temperature - - Respiratory Rate - - Oxygen Saturation - - Inhaled Oxygen Concentration - - Weight 85.7 kg (189 lb) 07/23/2024 2:55 PM HEADER SET UP OPERATOR Height 165.1 cm (5' 5 ) 07/23/2024 2:55 PM HEADER SET UP OPERATOR Body Mass Index 31.45 07/23/2024 2:55 PM HEADER SET UP OPERATOR Plan of Treatment Upcoming Encounters Date Type Department Care Team ([facility] st Contact Info) Description 11/24/2024 4:00 PM CDT Office Visit [facility] [address] [place] [address] [address] [place] [address] Cresencio Carlson MD [address] [facility] [address] [place] [address] Health Maintenance Due Date Last Done Comments Pneumococcal PPSV23 Highest Risk Adult (1 of 3 - PCV13 ) 2005 Influenza Vaccine (#1) 2024 Care Teams Physical Therapist Relationship Specialty Start Date End Date Jenifer Puga PA [address] [place] [phone] PCP - General Family Medicine 07/21/24
--- OUTSIDE RECORDS SUMMARY | 2024-09-09 09:47 | XMS_ITS | Data Portability ---
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 Lab CMP, serum or plasma 2023 024 VIET Dominguez, 2022 [address], [address], [place], [address], 4 08:30:20 CMP, serum or plasma 2023 024 VIET Dominguez, 2022 Rad[address]za, [address], [place], [address], 4 08:32:17 lipid panel, serum 2023 024 VIET Dominguez, 2022 Rad[address]za, [address], [place], [address], 4 10:16:23 CMP, serum or plasma 2023 024 VIET Dominguez, 2022 Rad[address]za, [address], [place], [address], 4 10:16:24 lipid panel, serum 2023 024 [place] [facility], 2022 Rad[address]za, [address], [place], [address], 4 10:47:40 HbA1c (hemoglobi n A1c), blood 2023 024 [place] In-Office Order, Internal Use Only DO Not Attach Compendium DO Not Attach Compendium, Do Not Delete/merge, [id number] 4 15:14:24 TSH + free T4, serum 2023 024 [facility], 2022 Rad[address] Garza, [address], [place], [address], 4 10:16:22 HAYDEE (antinucle ar antibodies ) screen, serum 2021 022 [facility], 2022 Rad[address] Garza, [address], [place], [address], 2 14:10:14 ESR (erythrocy te sedimentat ion rate), blood 2021 022 [facility], 2022 Rad[address] Garza, [address], [place], [address], 2 14:10:14 rf (rheumatoi d factor), serum 2021 022 [facility], 2022 Radha Garza, [address], [place], [address], 2 14:10:09 TSH, ultra-sens itive, serum 2021 022 [facility], 2022 Rad[address] Garza, [address], [place], [address], 2 14:10:13 pap, IG + reflex HPV 2021 022 DBA_PATCH_ [id number] [facility], 2022 [address], [address], [place], [address], 3 03:37:09 bacterial vaginosis score, CRISTIAN+probe, vaginal fluid (OBS) 2021 DBA_PATCH_ [id number] [facility], 2022 [address]za, [address], [place], [address], 3 03:37:09 treponema pallidum IgG + IgM Ab, QL, IA, serum 2021 [facility], 2022 Rad[address]za, [address], [place], [address], 2 03:07:19 HBsAg (hepatitis B surface Ag), EIA, serum 2021 [facility], 2022 Radha Garza, [address], [place], [address], 2 03:07:19 hepatitis C Ab, signal-to- cutoff, serum or plasma 2021 [facility], 2022 Rad[address]za, [address], [place], [address], 2 03:07:18 HIV 1 + 2, meaningful use set 2021 022 [facility], 2022 Rad[address] Garza, [address], [place], [address], 2 03:07:[address] referral 2023 024 Usman Moreno MD, [address], [address], [place], [address], 4 08:05:56 EGD referral 2021 022 SASCHA Farfan MD, [address], [address], [place], [address], 2 10:50:35 Procedures None recorded. Surgeries None recorded. Imaging XR, cervical spine 2021 022 [facility] (Imaging), [address], [place], [address], 2 10:25:00 US, duplex, carotid artery 2021 022 [facility] (Imaging), [address], [place], [address], 2 11:25:17 Medication Orders ketoconazo le 2 % topical cream 2023 024 [email or web address] [id number], [address], [place], [place], [id number], 4 14:40:23 Xulane 150 mcg-35 mcg/24 hr transderma l patch 2021 022 [id number], [address], [place], [place], [id number], 4 13:57:10 Patient TargetsNo targets recorded. Patient Instructions Encounter Date Encounter Id Patient Instructions Last Modified By Organization Details Last Modified Time 09/22/2021 [id number] Well Visit, Ages 18 to 65: Care Instructions Not available 09/22/2021 11:57:53 safer sex: care instructions Not available 09/22/2021 12:00:31 12/08/2021 [id number] A healthy lifestyle: care instructions Not available 12/11/2021 10:00:41 03/23/2024 [id number] rhythm strip, EKG* ATHENAFAX Not available 03/24/2024 09:00:29 06/22/2024 [id number] A healthy lifestyle: care instructions Not available 06/25/2024 13:52:12 Reason for Referral EGD Referral for Gastroesoph ageal reflux disease Referring Physician: Manuel Christian Business Solution Analyst, Encounter Date: 12/08/2021 [place] 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 9 Not Available [facility] ([facility]) [address] [facility] [address], [place], [address], 09/26/2021 03:07:18 09/23/1909/23/2021 HCV ANTIB MARY RFX TO QUANT PCR interpretati on: Commen t Negat andrey Not infec ashley with HCV, unles s recen t infec tion is suspe cted or other evide nce exist s to indic ate HCV infec tion. Not Available [facility] ([facility]) [address] [facility] [address], [place], [address], 09/26/2021 03:07:18 09/23/19 22 09/25/2021 T PALLI DUM SCREE MATEO CASCA DE T pallidum antibodies Non Reacti ve non reacti ve Not Available [facility] ([facility]) [address] [facility] [address], [place], [address], 09/26/2021 03:07:18 09/23/19 22 09/23/2021 HIV AB/P2 4 AG WITH REFLE X HIV Ab/P24 Ag screen Non Reacti ve non reacti ve HIV Negat andrey HIV-1 /HIV- 2 antib odies and HIV-1 p24 antig en were NOT detec ashley. There is no labor atory evide nce of HIV infec tion. Not Available [facility] ([facility]) [address] [facility] [address], [place], [address], 09/26/2021 03:07:19 09/23/19 22 09/23/2021 HBSAG SCREE N HBsAg screen Negati ve negati ve Not Available [facility] ([facility]) [address] [facility] [address], [place], [address], 09/26/2021 03:07:19 09/23/19 22 09/25/2021 IGP,A PTIMA HPV,A GE GDLN age gdln acog testing 30-65 Not Available [facility] ([facility]) [address] [place], [address], 09/28/2021 11:37:38 09/23/19 22 09/26/2021 IGP,A PTIMA HPV,A GE GDLN HPV aptima Negati ve negati ve This nucle ic acid ampli ficat ion test detec ts fourt een high- risk HPV types (16,1 8,31, 33,35 ,39,4 5,51, 52,56 ,58,5 9,66, 68) witho ut diffe renti ation . Not Available [facility] ([facility]) [address] [facility] [address], [place], [address], 09/28/2021 11:37:38 09/23/19 22 09/28/2021 IGP,A PTIMA HPV,A GE GDLN diagnosis: Commen t NEGAT ANDREY FOR INTRA EPITH ELIAL LESRIVAS N OR JOE NIXON . Not Available [facility] ([facility]) [address] [facility] [address], [place], [address], 09/28/2021 11:37:38 09/23/1909/28/2021 IGP,A PTIMA HPV,A GE GDLN specimen adequacy: Commen t Satis facto ry for evalu ation . Endoc ervic al and/o r squam ous metap lasti c cells (endo cervi kierra compo nent) are prese nt. Not Available [facility] ([facility]) [address] [place], [address], 09/28/2021 11:37:38 09/23/19 22 09/28/2021 IGP,A PTIMA HPV,A GE GDLN clinician provided ICD10: Camille nolasco Z01.4 19 Not Available [facility] ([facility]) [address] [place], [address], 09/28/2021 11:37:38 09/23/19 22 09/28/2021 IGP,A PTIMA HPV,A GE GDLN performed by: Camille Diego , Cytot db nolasco (ASCP ) Not Available [facility] ([facility]) [address] [place], [address], 09/28/2021 11:37:38 09/23/19 22 09/28/2021 IGP,A PTIMA HPV,A GE GDLN . . Not Available [facility] ([facility]) [address] [place], [address], 09/28/2021 11:37:38 09/23/19 22 09/28/2021 IGP,A PTIMA HPV,A GE GDLN note: Camille nolasco The Pap smear is a scree mateo test desig joann to aid in the detec tion of naomi ligna nt and malig nant condi tions of the uteri ne cervi x. It is not a diagn ostic proce dure and shoul d not be used as the sole means of detec ting cervi kierra cance r. Both false -posi tive and false -nega tive repor ts do occur . Not Available [facility] ([facility]) [address] [place], [address], 09/28/2021 11:37:38 09/23/19 22 09/28/2021 IGP,A PTIMA HPV,A GE GDLN test methodology: Camille nolasco This liqui d based ThinP rep(R ) pap test was scree joann with the use of an image guide d systosmar m. Not Available [facility] ([facility]) [address] [facility] [address], [place], [address], 09/28/2021 11:37:38 09/23/19 22 09/28/2021 NUSWA B VG+, HSV hsv 1 CRISTIAN Negati ve negati ve Not Available [facility] ([facility]) [address] [facility] [address], [place], [address], 09/29/2021 10:37:19 09/23/19 22 09/28/2021 NUSWA B VG+, HSV hsv 2 CRISTIAN Negati ve negati ve Not Available [facility] ([facility]) [address] [facility] [address], [place], [address], 09/29/2021 10:37:19 09/23/19 22 09/29/2021 NUSWA B VG+, HSV atopobium vaginae Low - 0 score Not Available [facility] ([facility]) [address] [facility] [address], [place], [address], 09/29/2021 10:37:19 09/23/19 22 09/29/2021 NUSWA B VG+, HSV bvab 2 Low - 0 score Not Available [facility] ([facility]) [address] [place], [address], 09/29/2021 10:37:19 09/23/19 22 09/29/2021 NUSWA B VG+, HSV megasphaera 1 Low - 0 score Calcu late total score by nadege g the 3 indiv idual bacte rial vagin osis (BV) marke r score s toget her. Total score is inter prete d as follo ws: Total score 0-1: Indic ates the absen ce of BV. Total score 2: Indet ermin ate for BV. Addit ional clini kierra data shoul d be evalu ated to estab naman a diagn osis. Total score 3-6: Indic ates the prese nce of BV. This test was devel oped and its perfo rmanc e juliet cteri stics deter mined by [facility]. It has not been clear ed or appro jp by the Food and Drug Admin istra tion. Not Available [facility] ([facility]) [address] [facility] [address], [place], [address], 09/29/2021 10:37:19 09/23/19 22 09/29/2021 NUSWA B VG+, HSV dave albicans, CRISTIAN Negati ve negati ve Not Available [facility] ([facility]) [address] [facility] [address], [place], [address], 09/29/2021 10:37:19 09/23/19 22 09/29/2021 NUSWA B VG+, HSV dave glabrata, CRISTIAN Negati ve negati ve Not Available [facility] ([facility]) [address] [facility] [address], [place], [address], 09/29/2021 10:37:19 09/23/19 22 09/29/2021 NUSWA B VG+, HSV trich vag by CRISTIAN Negati ve negati ve Not Available [facility] ([facility]) [address] [place], [address], 09/29/2021 10:37:19 09/23/19 22 09/29/2021 NUSWA B VG+, HSV chlamydia trachomatis, CRISTIAN Negati ve negati ve Not Available [facility] ([facility]) [address] [place], [address], 09/29/2021 10:37:19 09/23/19 22 09/29/2021 NUSWA B VG+, HSV neisseria gonorrhoeae, CRISTIAN Negati ve negati ve Not Available [facility] ([facility]) [address] [place], [address], 09/29/2021 10:37:19 12/09/19 22 12/09/2021 RHEUM ATOID FACTO R (RF) rheumatoid factor (rf) <10.0 IU/mL <14.0 Not Available [facility] ([facility]) [address] [place], [address], 12/11/2021 14:10:09 12/09/19 22 12/09/2021 TSH RFX ON ABNOR MAL TO FREE T4 TSH 1.860 uIU/m L 0.450- 4.500 Not Available [facility] ([facility]) [address] [place], [address], 12/11/2021 14:10:13 12/09/19 22 12/11/2021 HAYDEE W/REF ANDREW IF POSIT ANDREY HAYDEE direct Negati ve negati ve Not Available [facility] ([facility]) [address] [facility] [address], [place], [address], 12/11/2021 14:10:13 12/09/19 22 12/09/2021 SEDIM ENTAT ION RATE- WESTE RGREN sedimentatio n rate-westerg sapna 2 mm/HR 0-32 Not Available [facility] ([facility]) [address] [place], [address], 12/11/2021 14:10:14 03/23/20 24 03/24/2024 TSH+F REE T4 TSH 2.240 uIU/m L 0.450- 4.500 Not Available [facility] ([facility]) [address] [place], [address], 03/24/2024 10:16:22 03/23/20 24 03/24/2024 TSH+F REE T4 T4,free(dire ct) 1.16 NG/dL 0.82-1 .77 Not Available [facility] ([facility]) [address] [place], [address], 03/24/2024 10:16:22 03/23/20 24 03/24/2024 LIPID PANEL cholesterol, total 222 mg/dL 100-19 9 above high normal Not Available [facility] ([facility]) [address] [place], [address], 03/24/2024 10:16:23 03/23/20 24 03/24/2024 LIPID PANEL triglyceride s 175 mg/dL 0-149 above high normal Not Available [facility] ([facility]) [address] [facility] [place], [address], 03/24/2024 10:16:23 03/23/20 24 03/24/2024 LIPID PANEL HDL cholesterol 61 mg/dL >39 Not Available [facility] ([facility]) [address] [place], [address], 03/24/2024 10:16:23 03/23/20 24 03/24/2024 LIPID PANEL VLDL cholesterol kierra 31 mg/dL 5-40 Not Available [facility] ([facility]) [address] [place], [address], 03/24/2024 10:16:23 03/23/20 24 03/24/2024 LIPID PANEL LDL chol calc ([facility]) 130 mg/dL 0-99 above high normal Not Available [facility] ([facility]) [address] [place], [address], 03/24/2024 10:16:23 03/23/20 24 03/24/2024 COMP. METAB OLIC PANEL (14) glucose 101 mg/dL 70-99 above high normal Not Available [facility] ([facility]) [address] [place], [address], 03/24/2024 10:16:23 03/23/20 24 03/24/2024 COMP. METAB OLIC PANEL (14) BUN 6 mg/dL 6-20 Not Available [facility] ([facility]) [address] [place], [address], 03/24/2024 10:16:23 03/23/20 24 03/24/2024 COMP. METAB OLIC PANEL (14) creatinine 1.03 mg/dL 0.57-1 .00 above high normal Not Available [facility] ([facility]) [address] [facility] [place], [address], 03/24/2024 10:16:23 03/23/20 24 03/24/2024 COMP. METAB OLIC PANEL (14) eGFR 72 mL/mi n/1.7 3 >59 Not Available [facility] ([facility]) [address] [facility] [place], [address], 03/24/2024 10:16:23 03/23/20 24 03/24/2024 COMP. METAB OLIC PANEL (14) BUN/creatini ne ratio 6 9-23 below low normal Not Available [facility] ([facility]) [address] [facility] [place], [address], 03/24/2024 10:16:23 03/23/20 24 03/24/2024 COMP. METAB OLIC PANEL (14) sodium 140 mmol/ L 134-14 4 Not Available [facility] ([facility]) [address] [facility] [place], [address], 03/24/2024 10:16:23 03/23/20 24 03/24/2024 COMP. METAB OLIC PANEL (14) potassium 4.1 mmol/ L 3.5-5. 2 Not Available [facility] ([facility]) [address] [facility] [place], [address], 03/24/2024 10:16:23 03/23/20 24 03/24/2024 COMP. METAB OLIC PANEL (14) chloride 103 mmol/ L 96-106 Not Available [facility] ([facility]) [address] [facility] [place], [address], 03/24/2024 10:16:23 03/23/20 24 03/24/2024 COMP. METAB OLIC PANEL (14) carbon dioxide, total 23 mmol/ L 20-29 Not Available [facility] ([facility]) [address] [place], [address], 03/24/2024 10:16:23 03/23/20 24 03/24/2024 COMP. METAB OLIC PANEL (14) calcium 9.3 mg/dL 8.7-10 .2 Not Available [facility] ([facility]) [address] [place], [address], 03/24/2024 10:16:23 03/23/20 24 03/24/2024 COMP. METAB OLIC PANEL (14) protein, total 7.6 g/dL 6.0-8. 5 Not Available [facility] ([facility]) [address] [place], [address], 03/24/2024 10:16:23 03/23/20 24 03/24/2024 COMP. METAB OLIC PANEL (14) albumin 4.7 g/dL 3.9-4. 9 Not Available [facility] ([facility]) [address] [place], [address], 03/24/2024 10:16:23 03/23/20 24 03/24/2024 COMP. METAB OLIC PANEL (14) globulin, total 2.9 g/dL 1.5-4. 5 Not Available [facility] ([facility]) [address] [facility] [place], [address], 03/24/2024 10:16:23 03/23/20 24 03/24/2024 COMP. METAB OLIC PANEL (14) bilirubin, total 0.7 mg/dL 0.0-1. 2 Not Available [facility] ([facility]) [address] [facility] [place], [address], 03/24/2024 10:16:23 03/23/20 24 03/24/2024 COMP. METAB OLIC PANEL (14) alkaline phosphatase 59 IU/L 44-121 Not Available [facility] ([facility]) [address] [facility] [place], [address], 03/24/2024 10:16:23 03/23/20 24 03/24/2024 COMP. METAB OLIC PANEL (14) AST (SGOT) 16 IU/L 0-40 Not Available [facility] ([facility]) [address] [place], [address], 03/24/2024 10:16:23 03/23/20 24 03/24/2024 COMP. METAB OLIC PANEL (14) ALT (SGPT) 15 IU/L 0-32 Not Available [facility] ([facility]) [address] [place], [address], 03/24/2024 10:16:23 04/28/20 24 04/29/2024 LIPID PANEL cholesterol, total 185 mg/dL 100-19 9 Not Available [facility] ([facility]) [address] [place], [address], 04/29/2024 08:32:15 04/28/20 24 04/29/2024 LIPID PANEL triglyceride s 102 mg/dL 0-149 Not Available [facility] ([facility]) [address] [place], [address], 04/29/2024 08:32:15 04/28/20 24 04/29/2024 LIPID PANEL HDL cholesterol 66 mg/dL >39 Not Available [facility] ([facility]) [address] [place], [address], 04/29/2024 08:32:15 04/28/20 24 04/29/2024 LIPID PANEL VLDL cholesterol kierra 18 mg/dL 5-40 Not Available [facility] ([facility]) [address] [place], [address], 04/29/2024 08:32:15 04/28/20 24 04/29/2024 LIPID PANEL LDL chol calc ([facility]) 101 mg/dL 0-99 above high normal Not Available [facility] ([facility]) [address] [place], [address], 04/29/2024 08:32:15 04/28/20 24 04/29/2024 COMP. METAB OLIC PANEL (14) glucose 86 mg/dL 70-99 Not Available [facility] ([facility]) [address] [facility] [place], [address], 04/29/2024 08:32:16 04/28/20 24 04/29/2024 COMP. METAB OLIC PANEL (14) BUN 6 mg/dL 6-20 Not Available [facility] ([facility]) [address] [facility] [place], [address], 04/29/2024 08:32:16 04/28/20 24 04/29/2024 COMP. METAB OLIC PANEL (14) creatinine 1.05 mg/dL 0.57-1 .00 above high normal Not Available [facility] ([facility]) [address] [facility], [place], [address], 04/29/2024 08:32:16 04/28/20 24 04/29/2024 COMP. METAB OLIC PANEL (14) eGFR 70 mL/mi n/1.7 3 >59 Not Available [facility] ([facility]) [address] [facility] [place], [address], 04/29/2024 08:32:16 04/28/20 24 04/29/2024 COMP. METAB OLIC PANEL (14) BUN/creatini ne ratio 6 9-23 below low normal Not Available [facility] ([facility]) [address] [facility] [place], [address], 04/29/2024 08:32:16 04/28/20 24 04/29/2024 COMP. METAB OLIC PANEL (14) sodium 137 mmol/ L 134-14 4 Not Available [facility] ([facility]) [address] [facility] [place], [address], 04/29/2024 08:32:16 04/28/20 24 04/29/2024 COMP. METAB OLIC PANEL (14) potassium 4.1 mmol/ L 3.5-5. 2 Not Available [facility] ([facility]) [address] [facility], [place], [address], 04/29/2024 08:32:16 04/28/20 24 04/29/2024 COMP. METAB OLIC PANEL (14) chloride 100 mmol/ L 96-106 Not Available [facility] ([facility]) [address] [facility], [place], [address], 04/29/2024 08:32:16 04/28/2004/29/2024 COMP. METAB OLIC PANEL (14) carbon dioxide, total 23 mmol/ L 20-29 Not Available [facility] ([facility]) [address] [facility], [place], [address], 04/29/2024 08:32:16 04/28/20 24 04/29/2024 COMP. METAB OLIC PANEL (14) calcium 9.5 mg/dL 8.7-10 .2 Not Available [facility] ([facility]) [address] [facility], [place], [address], 04/29/2024 08:32:16 04/28/20 24 04/29/2024 COMP. METAB OLIC PANEL (14) protein, total 7.0 g/dL 6.0-8. 5 Not Available [facility] ([facility]) [address] [facility], [place], [address], 04/29/2024 08:32:16 04/28/20 24 04/29/2024 COMP. METAB OLIC PANEL (14) albumin 4.4 g/dL 3.9-4. 9 Not Available [facility] ([facility]) [address] [place], [address], 04/29/2024 08:32:16 04/28/20 24 04/29/2024 COMP. METAB OLIC PANEL (14) globulin, total 2.6 g/dL 1.5-4. 5 Not Available [facility] ([facility]) [address] [facility] [place], [address], 04/29/2024 08:32:16 04/28/20 24 04/29/2024 COMP. METAB OLIC PANEL (14) bilirubin, total 0.5 mg/dL 0.0-1. 2 Not Available [facility] ([facility]) [address] [facility] [place], [address], 04/29/2024 08:32:16 04/28/20 24 04/29/2024 COMP. METAB OLIC PANEL (14) alkaline phosphatase 57 IU/L 44-121 Not Available [facility] ([facility]) [address] [facility] [place], [address], 04/29/2024 08:32:16 04/28/20 24 04/29/2024 COMP. METAB OLIC PANEL (14) AST (SGOT) 16 IU/L 0-40 Not Available [facility] ([facility]) [address] [facility] [place], [address], 04/29/2024 08:32:16 04/28/20 24 04/29/2024 COMP. METAB OLIC PANEL (14) ALT (SGPT) 14 IU/L 0-32 Not Available [facility] ([facility]) [address] [facility] [place], [address], 04/29/2024 08:32:16 06/22/20 24 06/24/2024 COMP. METAB OLIC PANEL (14) glucose 107 mg/dL 70-99 above high normal Not Available [facility] ([facility]) [address] [facility] [place], [address], 06/24/2024 08:30:20 06/22/20 24 06/24/2024 COMP. METAB OLIC PANEL (14) BUN 7 mg/dL 6-20 Not Available [facility] ([facility]) [address] [facility] [place], [address], 06/24/2024 08:30:20 06/22/20 24 06/24/2024 COMP. METAB OLIC PANEL (14) creatinine 0.98 mg/dL 0.57-1 .00 Not Available [facility] ([facility]) [address] [facility] [place], [address], 06/24/2024 08:30:20 06/22/20 24 06/24/2024 COMP. METAB OLIC PANEL (14) eGFR 76 mL/mi n/1.7 3 >59 Not Available [facility] ([facility]) [address] [facility] [place], [address], 06/24/2024 08:30:20 06/22/20 24 06/24/2024 COMP. METAB OLIC PANEL (14) BUN/creatini ne ratio 7 9-23 below low normal Not Available [facility] ([facility]) [address] [facility], [place], [address], 06/24/2024 08:30:20 06/22/20 24 06/24/2024 COMP. METAB OLIC PANEL (14) sodium 136 mmol/ L 134-14 4 Not Available [facility] ([facility]) [address] [facility] [place], [address], 06/24/2024 08:30:20 06/22/20 24 06/24/2024 COMP. METAB OLIC PANEL (14) potassium 4.4 mmol/ L 3.5-5. 2 Not Available [facility] ([facility]) [address] [facility] [place], [address], 06/24/2024 08:30:20 06/22/20 24 06/24/2024 COMP. METAB OLIC PANEL (14) chloride 100 mmol/ L 96-106 Not Available [facility] ([facility]) [address] [facility] [place], [address], 06/24/2024 08:30:20 06/22/20 24 06/24/2024 COMP. METAB OLIC PANEL (14) carbon dioxide, total 24 mmol/ L 20-29 Not Available [facility] ([facility]) [address] [place], [address], 06/24/2024 08:30:20 06/22/20 24 06/24/2024 COMP. METAB OLIC PANEL (14) calcium 9.5 mg/dL 8.7-10 .2 Not Available [facility] ([facility]) [address] [place], [address], 06/24/2024 08:30:20 06/22/20 24 06/24/2024 COMP. METAB OLIC PANEL (14) protein, total 7.2 g/dL 6.0-8. 5 Not Available [facility] ([facility]) [address] [place], [address], 06/24/2024 08:30:20 06/22/20 24 06/24/2024 COMP. METAB OLIC PANEL (14) albumin 4.7 g/dL 3.9-4. 9 Not Available [facility] ([facility]) [address] [place], [address], 06/24/2024 08:30:20 06/22/20 24 06/24/2024 COMP. METAB OLIC PANEL (14) globulin, total 2.5 g/dL 1.5-4. 5 Not Available [facility] ([facility]) [address] [place], [address], 06/24/2024 08:30:20 06/22/20 24 06/24/2024 COMP. METAB OLIC PANEL (14) bilirubin, total 0.5 mg/dL 0.0-1. 2 Not Available [facility] ([facility]) [address] [place], [address], 06/24/2024 08:30:20 06/22/20 24 06/24/2024 COMP. METAB OLIC PANEL (14) alkaline phosphatase 66 IU/L 44-121 Not Available [facility] ([facility]) [address] [place], [address], 06/24/2024 08:30:20 06/22/20 24 06/24/2024 COMP. METAB OLIC PANEL (14) AST (SGOT) 20 IU/L 0-40 Not Available [facility] ([facility]) [address] [place], [address], 06/24/2024 08:30:20 06/22/20 24 06/24/2024 COMP. METAB OLIC PANEL (14) ALT (SGPT) 18 IU/L 0-32 Not Available [facility] ([facility]) [address] [place], [address], 06/24/2024 08:30:20 09/29/19 22 09/28/2021 XR, chest , 2 view No observ ation record ed. [address], [place], [address], 09/29/2021 14:34:54 10/06/19 22 10/04/2021 exerc ise stres s test No observ ation record ed. [place] [id number] [facility] [address] [facility] [address], [place], [address], 10/13/2021 09:33:44 12/22/19 22 12/20/2021 XR, cervi kierra spine No observ ation record ed. [place] [id number] [facility] [address], [address], 12/23/2021 13:58:33 04/13/20 22 04/13/2022 CT, head + brain , w/o contr ast No observ ation record ed. [address], [place], [address], 04/13/2022 15:16:14 11/16/20 22 05/23/2022 CT, abdom en + pelvi s, w/ contr ast No observ ation record ed. [address] [facility] [address], [place], [address], 05/24/2022 18:33:09 12/27/19 24 12/27/2023 XR, chest , 2 view No observ ation record ed. [address] [facility] [address], [place], [address], 12/30/2023 08:55:14 Result Notes None recorded. Problems Name Problem SNOMED Code Status Onset Date Resolution Date Notes Provider Name and Address Organization Details Recorded Time Diastolic dysfunction 8251416 Active 2021 CHETAN DAVENPORT Attn: Dacia montes,[address] [facility], [place], [address], [facility] 2 09:57:47 Pityriasis versicolor 91552090 Active 2023 CHETAN DAVENPORT Attn: Dacia montes,[address] [place], [address], [facility] 4 14:39:48 Chronic kidney disease 563982401 Active 2023 CHETAN DAVENPORT Attn: Dacia montes,[address] [facility], [place], [address], [facility] 4 13:52:04 Polycystic ovaries Active Preston sarabia, [place] - [facility] 6 16:32:25 Hyperlipide claude 32750104 Active Preston Wright null, [place] - [facility] 6 13:06:33 Candidiasis of vagina 33004819 Completed 05/10/2021 CHETAN DAVENPORT Attn: Dacia jyoti,[address] [facility], [place], [address], [facility] 1 12:06:16 Problem Notes None recorded. Procedures Surgical History Date Name Laterality Status Provider Name and Address Organization Details Recorded Time 09/23/19 22 Date of Last Pap Smear completed Gala Carcamo MA [facility] 09/22/2021 11:33:09 07/08/19 09 Cholecystectomy completed Estela AARON Manriquez [facility] 11/10/2015 15:15:41 03/18/20 08 Caesarean Section completed Estela Manriquez MA [facility] 11/10/2015 15:15:41 07/08/19 06 termination of completed Gala Carcamo MA [facility] 09/29/2019 11:36:49 Imaging Results Imaging Date Name Status LastModified by Organiz ation Details LastModified Time 09/28/2021 XR, chest, 2 view completed [address] [place] [address], [address], 09/29/2021 14:34:54 10/04/2021 exercise stress test completed [place] [id number] [facility] [facility] [address], [place], [address], 10/13/2021 09:33:44 12/20/2021 XR, cervical spine completed [address] [place] [address], [address], 12/23/2021 13:58:33 04/13/2022 CT, head + brain, w/o contrast completed [address] [place] [address], [address], 04/13/2022 15:16:14 05/23/2022 CT, abdomen + pelvis, w/ contrast completed [address] [place] [address], [address], 05/24/2022 18:33:09 12/27/2023 XR, chest, 2 view completed [address] [place] [address], [address], 12/30/2023 08:55:14 Procedure Notes None recorded. Medical Equipment None Reported. Allergies No known drug allergies Medications Name Sig Start Date Stop Date Status Note LastModified by Organization Details LastModified Time status covid-19/fl u a-b antigen tst TEST DIRECTED TODAY 03/23 completed Not Available Not Available Not Available multivitami n tablet TAKE 1 TABLET BY MOUTH EVERY DAY 03/23 completed Not Available Not Available Not Available cyclobenzap rine 10 mg tablet 09/28 completed Not Available Not Available Not Available fluconazole 150 mg tablet Take 1 tablet by oral route. 09/28 completed Not Available Not Available Not Available Microgestin FE 20 (28) 1 mg-20 mcg (21)/75 mg (7) tablet Take 1 tablet every day by oral route. 09/28 completed Not Available Not Available Not Available famotidine 20 mg tablet 09/28 completed Not Available Not Available Not Available simvastatin 20 mg tablet Take 1 tablet every day by oral route. 09/28 completed Not Available Not Available Not Available lisinopril 10 mg tablet Take 1 tablet every day by oral route for 90 days. active Not Available Not Available No t Available omeprazole 20 mg capsule,del ayed release TAKE 1 CAPSULE BY MOUTH EVERY DAY 03/23 completed Not Available Not Available Not Available ibuprofen 600 mg tablet TAKE 1 TABLET BY MOUTH THREE TIMES DAILY NEEDED FOR PAIN 03/23 completed Not Available Not Available Not Available methylpredn isolone 4 mg tablets in a dose pack 05/10 completed Not Available Not Available Not Available ketoconazol e 2 % topical cream APPLY TOPICALLY TO THE AFFECTED AREA TWICE DAILY FOR 2 WEEKS active Not Available Not Available No t Available ondansetron 4 mg disintegrat ing tablet TAKE 1 TABLET BY MOUTH EVERY 6-8 HOURS NEEDED 03/23 completed Not Available Not Available Not Available cholecalcif marina (vitamin D3) 125 mcg (5,000 unit) capsule 09/22 completed Not Available Not Available Not Available naproxen 500 mg tablet 09/28 completed Not Available Not Available Not Available Loestrin Fe 1.5/30 (28-Day) 1.5 mg-30 mcg (21)/75 mg (7) tablet TAKE 1 TABLET BY MOUTH EVERY DAY 09/28 completed Not Available Not Available Not Available chlorhexidi ne gluconate 0.12 % mouthwash 09/28 completed Not Available Not Available Not Available intrauterin e device (IUD) 2023 active Not Available Not Available Not Avai lable calcium 600 mg (as carbonate)- vitamin D3 10 mcg (400 unit) tablet TAKE 1 TABLET BY MOUTH TWICE DAILY 09/22 completed Not Available Not Available Not Available Lo Loestrin Fe 1 mg-10 mcg (24)/10 mcg (2) tablet TAKE 1 TABLET BY MOUTH DAILY 09/28 completed Not Available Not Available Not Available Amethia 0.15 mg-30 mcg (84)/10 mcg(7) tablets,3 month dose pack 1 qd 09/28 completed Not Available Not Available Not Available Amethia Lo 0.1 mg-20 mcg (84)/10 mcg (7) tablets,3 month dose pack 1qd 09/28 completed Not Available Not Available Not Available calcium 600 mg (as carbonate)- vitamin D3 20 mcg (800 unit) tablet Take 1 tablet twice a day by oral route for 30 days. 09/28 completed Not Available Not Available Not Available Xulane 150 mcg-35 mcg/24 hr transdermal patch Apply 1 patch every week by transderm al route. 03/23 completed Not Available Not Available Not Available Take Action 1.5 mg tablet Take 1 tablet by oral route as directed. 09/28 completed Not Available Not Available Not Available Leila 0.25 mg-35 mcg tablet TAKE 1 TABLET BY MOUTH EVERY DAY 09/22 completed Not Available Not Available Not Available BinaxNOW COVID-19 Ag Self Test kit TEST DIRECTED TODAY active Not Available Not Available No t Available Vitals Date Recorded Body height Body mass index (BMI) Body weight Systolic blood pressure Diastolic blood pressure Provider Name and Address Organization Details Last Updated DateTime 09/22/2021 165.1 cm 30.1 kg/m2 15860.22 g 124 mm[Hg] 80 mm[Hg] Gala Carcamo [place] [facility] 2 11:40:22 Date Recorded Body height Body mass index (BMI) Body weight Oxygen saturation Oxygen saturation in Arterial blood by Pulse oximetry Systolic blood pressure Diastolic blood pressure Provider Name and Address Organization Details Last Updated DateTime 2 165.1 cm 31.3 kg/m2 38049.1 2 g 99 % 99 % 122 mm[Hg] 74 mm[Hg] Alta Cardozo MA [facility] 2 11:15:14 Date Recorded Body height Body mass index (BMI) Body weight Heart rate Oxygen saturation Oxygen saturation in Arterial blood by Pulse oximetry Systolic blood pressure Diastolic blood pressure Provider Name and Address Organization Details Last Updated DateTime 4 165.1 cm 32.3 kg/m2 98931.9 2 g 79 /min 99 % 99 % 135 mm[Hg] 85 mm[Hg] Alta Cardozo MA [facility] 4 13:57:40 Date Recorded Body height Body mass index (BMI) Body weight Heart rate Oxygen saturation Oxygen saturation in Arterial blood by Pulse oximetry Provider Name and Address Organization Details Last Updated DateTime 4 165.1 cm 31.5 kg/m2 02597.9 6 g 89 /min 99 % 99 % Alta Cardozo MA [facility] 4 10:59:00 Date Recorded Systolic blood pressure Diastolic blood pressure Provider Name and Address Organization Details Last Updated DateTime 06/22/2024 136 mm[Hg] 88 mm[Hg] CHETAN DAVENPORT Attn: Accounting[address] [place], [address] 06/25/2024 13:51:07 Social History Question Answer Notes LastModified by Organizat ion Details LastModified Time Tobacco Smoking Status Never Smoker CHETAN DAVENPORT Attn: Accounting[address] [place], [address] 03/23/2024 14:13:18 Do You Have An Advance Directive? No Information not available 11/10/2015 What Is Your Level Of Alcohol Consumption? None Information not available 06/09/2021 Is Blood Transfusion Acceptable In An Emergency? Yes Information not available 11/10/2015 What Is Your Level Of Caffeine Consumption? Moderate Information not available 11/10/2015 How Much Tobacco Do You Chew? None Information not available 11/10/2015 In The 14 Days Before Symptom Onset, Have You Had Close Contact With A Laboratory-confi rmed COVID-19 While That Case Was Ill? No Information not available 05/10/2021 In The 14 Days Before Symptom Onset, Have You Had Close Contact With A Person Who Is Under Investigation For COVID-19 While That Person Was Ill? No Information not available 05/10/2021 Have You Been To An Area Known To Be High Risk For COVID-19? No Information not available 05/10/2021 Are You Currently Employed? Yes Information not available 11/10/2015 What Type Of Diet Are You Following? REGULAR Information not available 11/10/2015 Which Illicit Or Recreational Drugs Have You Used? None 09/29/2019 Former Marijuana User Information not available 09/29/2019 Do You Or Have You Ever Used E-cigarettes Or Vape? 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 Alone Information not available 11/10/2015 What Was The Date Of Your Most Recent Tobacco Screening? 06/22/2024 Information not available 06/22/2024 How Many Children Do You Have? 1 Information not available 11/10/2015 Performs Monthly Self-breast Exam? Yes Information not available 11/10/2015 Do You Use Protection During Sex? No Information not available 11/10/2015 What Is Your Relationship Status? Single Information not available 11/10/2015 Seat Belts Used Routinely Yes Information not available 11/10/2015 Are You Sexually Active? Yes Information not available 11/10/2015 Do You Have Smoke And Carbon Monoxide Detectors In Your Home? Yes Information not available 05/10/2021 Are You Passively Exposed To Smoke? No Information not available 05/10/2021 Do You Or Have You Ever Used Smokeless Tobacco? Never Used Smokeless Tobacco Information not available 09/29/2019 How Much Tobacco Do You Smoke? No Information not available 09/29/2019 General Stress Level Low Information not available 11/10/2015 Do You Use Any Illicit Or Recreational Drugs? No Information not available 05/10/2021 Do You Use Sunscreen Routinely? No Information not available 11/10/2015 Has Tobacco Cessation Counseling Been Provided? No Information not available 09/22/2021 On What Date Was Tobacco Cessation Counseling Provided? 06/22/2024 Information not available 06/22/2024 Do You Or Have You Ever Used Any Other Forms Of Tobacco Or Nicotine? No Information not available 05/10/2021 Sex: Female Functional Status Question Answer Note LastModified by Organization D etails LastModified Time What is your exercise level? Moderate Information not available 11/10/2015 Mental Status None recorded. Family History Relationship Description Onset Age of this Age Resolved Age Notes LastModified by Organization Details LastModified Time Maternal Aunt Diabetes mellitus x2 aunts Not available 11/10/2015 15:19:49 Maternal Aunt Malignant tumor of breast Not available 2015 15:19:49 Medical History Condition Response Other N High Blood Pressure N Breast Cancer N Thyroid Problems N Kidney or Bladder Problems N GI Problems N Depression N Blood Clots N Lung Disease N Acne N Breast Problem N Eating Disorder N Anemia N Anesthesia Complications N Headaches/Migraines Y Anxiety Disorder N Diabetes N Ovarian Cancer N Muscle, Joint, or Bone Problems N Blood Transfusions N Seizures/Epilepsy N Polyps N Infertility N Acid Reflux (GERD) N Cancer N Abuse/Domestic Violence N Asthma N Endometriosis N High Cholesterol N Hepatitis N Liver Disease N Heart Disease N Pre-Eclampsia N Osteoporosis N Gynecological History Statement/Question Response Abnormal Pap N Flow Moderate Date of LMP 03/22/2024 On BCP's at Conception? Y STIs/STDs Yes HPV Vaccine Y Age at Menarche 15 Current Control Method None Age at First Child 22 Frequency of Cycle (Q days) 28 Sexually Active? Y Menses Monthly Y Date of Last Pap Smear 09/22/2021 Sexual Problems? Y LMP Definite Desired Control Method Patch Obstetrics History GPAL:G 2 P 1 0 1 1 Type Value Multiple Births 0 Full Term 1 Induced 1 Spontaneous 0 Premature 0 Living 1 Ectopics 0 Total 2 Immunizations Vaccine Type Date Status Note Provider Nam e and Address Organization Details Recorded Time Influenza, MDCK, quadrivalent, PF 04/21/2023 completed AARON [place], [place] [facility] 03/23/2024 13:47:08 MMR 01/05/2019 completed AARON [place] [facility] 03/23/2024 13:47:08 COVID-19, mRNA, LNP-S, PF, 100 mcg/0.5mL dose or 50 mcg/0.25mL dose 05/13/2021 [place] AARON [place] [facility] 03/23/2024 13:47:08 COVID-19, mRNA, LNP-S, PF, 100 mcg/0.5mL dose or 50 mcg/0.25mL dose 06/10/2021 [place] AARON [place] [facility] 03/23/2024 13:47:08 Influenza, split virus, quadrivalent, PF 03/27/2020 [place] AARON [place] [facility] 03/23/2024 13:47:08 Tdap 03/23/2024 completed CHETAN DAVENPORT Attn: Accounting[address] [place], [address], [place] [facility] 03/23/2024 14:40:23 Past Encounters Encounter ID Performer Location Encounter Start Date Encounter Closed Date Diagnosis/Indication Diagnosis SNOMED-CT Code Diagnosis ICD10 Code Diagnosis Note [id number] Preston Su HC (ANIMAL CARE SPECIALIST) [address] [place] [phone] 11/10/2015 14:51:37 11/11/2015 11:48:31 Gynecologic examination 31964900 Z01.419 Polycystic ovaries 18424 008 E28.2 Family vini nning surveillance 027349120 Z30.09 [id number] Preston Su HC (ANIMAL CARE SPECIALIST) [address] [place] [phone] 09/29/2019 10:03:50 09/30/2019 08:39:58 Family planning surveillance 542717065 Z30.09 [id number] CHETAN DAVENPORT [facility] [address] [place], [place] [address]a [place] [address] 05/10/2021 11:34:47 05/11/2021 12:15:03 Gastroesophageal reflux disease 343417528 K21.9 - omeprazole - discussed what foods to avoid- f/u one month Dizziness 406517629 R42 - check labs- stay hydrated- eat at regular time intervals- f/u one month [id number] CHETAN DAVENPORT [facility] [address] [place] [address] 06/09/2021 10:13:38 06/12/2021 12:07:38 Gastroesophageal reflux disease 261702632 K21.9 improvment with one month of omeprazole . will continue for 3 full months. Dizziness 573933884 R42 - check labs- stay hydrated- eat at regular time intervals- f/u one month Dyspnea on exertion 6084 5006 R06.09 no swelling in legs. no orthopnea, sleeps on pillow. dizziness when going up inclined stairs. chest pain has no associatio n to exercise. pressure pain and prickly feeling. lasts a. 2-3 months ago had palpitatio ns and lasted 5-[address] and sustained. feels like flutters. twice in last 6 months. [id number] CHETAN NEGRON (ANIMAL CARE SPECIALIST) [address] [place] [phone] 09/22/2021 11:25:23 09/29/2021 11:38:22 Gynecologic examination 57898003 Z01.419 Cervical cancer screening: Last Pap 11/10/15 NILM, HPV-, updated todayBreas t cancer screening: Reviewed recommenda tions for initiation at age 40 with annual screening. Discussed SBEColonos copy: n/aSTI screening: routine nuswab, treat as neededCont raception: Will begin transderma l patch todayDiet/ exercise: Counseled regarding importance of physical activity, healthy diet and appropriat e calcium intake.RTC in 1yr Contracept ion care management 672083271 Z30.9 Pt is not currently on any form of control. Discussed different control options with patient such as OCPs, patch, ring, Depo Provera shot, Nexplanon, and IUDs including SE and RF. She would like to begin the patch today. Counseled on use. Pt given pamphlets for Mirena and Paraguard IUD as she is considerin g for the future. RTC in 3 months. Venereal d isease screening 846192092 Z11.3 Pt would like full STI screening. She has no symptoms and has not knowingly been in contact with anyone with STIs. Safe sex practices discussed. [id number] CHETAN DAVENPORT [facility] [address] [place] [address] 12/08/2021 10:56:01 12/12/2021 12:41:14 Gastroesophageal reflux disease 422669016 K21.9 improvemen t with one month of omeprazole . will continue for 3 full months. Neck pain 18871153 M54.2 left sided neck pain. No pain o palpation over neck muscles or cervical spine. good ROM and strength. She states the pain is from the inside. Multiple joint pain 3567 8005 M25.50 aching pain in b/l hands and knees since September. Migraine 17975110 G43.90 9 patietn with hx of migraine, left sided chest pain with left sided neck radiation, diastolic dysfunctio n grade 1. Follows cardiology . R/O carotid stenosis. Diastolic dysfunction 35 69114 I51.9 following cardiology . Obesity 998780512 E66.9 [id number] CHETAN DAVENPORT [facility] [address] [place] [address] 03/23/2024 13:32:37 03/23/2024 15:04:23 Chest pain 24471554 R07.9 intermitte nt but more than beforesubs ternal and feels it as soon as she wakes upno cough, fever, sob+ anxiety but need to r/o cardiac causes Administra tion of diphtheria, pertussis, and tetanus vaccine 953856152 Z23 Adult heal th examination 240370818 Z00.00 - labs- cardiology - tdap- ekg/xray- ER if cp worsens Pityriasis versicolor 56 706831 B36.0 hypopigmen ashley patches appear on the chest, back, neck [id number] Maribel Quintana MA [facility] [address] [place] [address] 04/28/2024 14:05:28 04/28/2024 15:15:57 Adult health examination 105589584 Z00.00 - labs- cardiology - tdap- ekg/xray- ER if cp worsens [id number] CHETAN DAVENPORT [facility] [address] [place] [address] 06/22/2024 10:52:44 06/29/2024 11:55:35 Chronic kidney disease 436365810 N18.9 Has nephrology coming upnot taking lisinopril medication discussed today with patient with risk vs benefits Obesity 735080698 E66.9 Health Concerns Section Related Observation LastModified by Organization Detai ls LastModified Time None Recorded Concern Status LastModified by Organization Details LastModified Time None Recorded Advance Directives Directive N: Payers Encounter Date Sequence Insurance Name Policy Number Policy Galindo Covered Member ID Galindo Member ID Guarantor Name 09/22/2021 1 [facility] (MEDICAID HMO) [id number] Tamela Wood [id number] Tamela Wood 12/08/2021 1 [facility] (MEDICAID HMO) [id number] Tamela Wood [id number] Tamela Wood 03/23/2024 1 [facility] [id number] Tamela Wood [id number] Tamela Wood 04/28/2024 1 [facility] [id number] Tamela Wood [id number] Tamela Wood 06/22/2024 1 [facility] [id number] Tamela Wood [id number] Tamela Wood Notes Date Note Type Note Provider Name and Address Organization Details Recorded Time 09/22/2021 text/html Annual GYNReport ed bypatient.History:no gynecologic complaints Menstrual cycle:Normal menses Urinary symptoms:No hematuria; No incontinence Vulva:No genital lesion Vagina:Normal vaginal discharge Breast:No breast pain; No breast lump; No nipple discharge Current Contraception: control not practiced; Wants to discuss contraceptive options; Requests testing for sexually transmitted infections Sexual complaints:No sexual complaints; No pain during intercourse; Normal libido Menopausal Symptoms:No menopausal symptoms; Normal vaginal lubrication Psychological symptoms:No depression; No anxiety; No PMDD Preventive measures:Encourage self breast examination; Encourage regular exercise; Encourage no tobacco use Tamela Wood is a 36 year old presenting for her annual wellness exam and contraception management. She is not on contraceptives currently and is interested in the patch. Pt denies pelvic pain, abnormal discharge, vaginal symptoms, n/v/f. Patient further denies personal history of DVT/PE, HTN, cardiovascular disease, stroke, migraines, or seizures. She denies tobacco use. CHETAN NEGRON Attn: [address]ing[address] [place], [address], [facility] 09/28/2021 12:36:54 12/08/2021 text/html Tamela is a 36 YO F presenting for check up joint pain b/l knees and hands stared about since September. aching pain. feels it when walking or sitting. She follows cardiology, Dr Cervantes did echo stress and xray. All was normal. will be back in 6 months? Patient states she is having left sided chest pain with left neck radiation. She has hx of migraines, diastolic dysfunction grade 1. cardiology wants her to have xray. patietn states she does not feel pain over cervical spine. 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 She is managing anxiety well. sleeping well. ER visits in December and January for possible covid but was negative. On chart review she had elevated liver enzymes and wbc. Patient states she is having left sided chest pain with left neck radiation on occasion and has been more noticeable recently. used to see Dr Barraza but has >1 year. She has hx of migraines, diastolic dysfunction grade 1. she does admit some pain improved with pressure. some pain is random and wakes up with chest pain in the morning. CHETAN DAVENPORT Attn: Accounting[address] [place], [address], [facility] 03/23/2024 14:41:19 06/22/2024 text/html Tamela is here for repeat blood work on her kidney function decline states BP at home is normal and she has not take lisinopril. Taking medications causes her anxiety and she wonders if she will have to be on it forever. CHETAN DAVENPORT Attn: [address]ing[address] [facility], [place], [address], [facility] 06/25/2024 13:53:04 OBGyn Episode Ob Episode Information Episode Created Date Number of Fetuses Patient Bloodtype Patient rh Status Prepregnancy Weight lbs Domestic Partner Domestic Partner Phone Father Name Trekking Guide Status 09/29/19 20 1 CLOSED Fetus Data First Name Last Name Admitted to NICU Weight (g) Sex Living Outcome Pediatric Complications Fetus ID Race Codes Race Delivery Type , Induced [id number] Adis Calculation Initial Adis Date Initial Exam [...] Post Complications Tubal Sterilization Discharge Date Comments 6 10 Discharge Information Feeding Method Contraceptive Method Maternal HG B and HCT Levels Ob Episode Information Episode Created Date Number of Fetuses Patient Bloodtype Patient rh Status Prepregnancy Weight lbs Domestic Partner Domestic Partner Phone Father Name Trekking Guide Status 11/10/19 16 1 CLOSED Fetus Data First Name Last Name Admitted to NICU Weight (g) Sex Living Outcome Pediatric Complications Fetus ID Race Codes Race Delivery Type 3175.14 4 F Full Term [id number] Primary Adis Calculation Initial Adis Date Initial [...] Complications Tubal Sterilization Discharge Date Comments 8 Regional- idural 37 false Spencerriell e Discharge Information Feeding Method Contraceptive Method Maternal HG B and HCT Levels
== END 2024-09-09 09:12 | disposition home or self-care (01) ==
PROVIDERS: PCP Physician Assistant; Visit Provider Hospitalist
DX: N18.2 Chronic kidney disease, stage 2 (mild) (principal)
CPT/HCPCS: 76775